=== PATIENT | female | born 1955 | race Caucasian/White ===

== ENCOUNTER 2023-08-03 06:37 | Outpatient (OUT) | payer OTHER, SELFPAY ==
[2023-08-03 07:07] LABS: Basophils Absolute Auto 0.1 10^3/uL (0.0-0.1); Basophils Percent Auto 0.9 % (0.2-2.0); Eosinophils Absolute Auto 0.1 10^3/uL (0.0-0.7); Hematocrit 40.4 % (36.0-48.0); Hemoglobin 13.1 g/dL (12.0-16.0); Immature Granulocytes Abs Auto 0.02 10^3/uL (0.00-0.03); Immature Granulocytes Pct Auto 0.4 % (0.0-0.5); Lymphocytes Absolute Auto 2.1 10^3/uL (1.2-3.8); Mean Corpuscular HGB Conc 32.4 g/dL (29.9-35.2); Mean Corpuscular Hemoglobin 30.6 pg (26.7-34.0); Mean Corpuscular Volume 94.4 fL (81.0-99.0); Mean Platelet Volume 9.6 fL (9.5-13.5); Monocytes Absolute Auto 0.6 10^3/uL (0.3-0.8); Monocytes Percent Auto 10.3 % (1.7-12.0); Neutrophils Absolute Auto 2.7 10^3/uL (1.4-6.5); Neutrophils Percent Auto 48.4 % (43.0-75.0); Platelet Count 303 10^3/uL (150-450); Red Blood Count 4.28 10^6/uL (4.20-5.40); Red Cell Distribution Width 12.7 % (11.0-15.0); White Blood Count 5.5 10^3/uL (4.0-11.0)
[2023-08-03 07:48] LABS: Estimated Average Glucose 117 mg/dL; Glycohemoglobin A1C 5.7 % (4.5-6.2)
[2023-08-03 10:33] LABS: Alanine Aminotransferase 21 U/L (14-59); Albumin Globulin Ratio 1.1; Albumin Level 3.7 g/dL (3.4-5.0); Alkaline Phosphatase 75 U/L (46-116); Anion Gap 12.4; Aspartate Amino Transferase <5 U/L (15-37); BUN Creatinine Ratio 16.2; Bilirubin Total 0.5 mg/dL (0.2-1.0); Calcium 9.2 mg/dL (8.5-10.1); Carbon Dioxide 28.2 mmol/L (21.0-32.0); Chloride 104 mmol/L (98-107); Chol HDL Ratio 3.3; Cholesterol 206 mg/dL (<=200); Estimated GFR (African America >60 (>=60); Estimated GFR (Non-African Ame >60 (>=60); Globulin 3.4 g/dL; Glucose 102 mg/dL (74-106); HDL Cholesterol 62 mg/dL (40-60); Potassium 3.6 mmol/L (3.5-5.1); Sodium 141 mmol/L (136-145); Thyroid Stimulating Hormone 1.461 uIU/mL (0.358-3.740); Total Protein 7.1 g/dL (6.4-8.2); Triglycerides 47 mg/dL (<=150); VLDL CHOLESTEROL 9.4 mg/dL
== END 2023-08-03 06:38 | disposition home or self-care (01) ==
LOC: LAB 06:43
PROVIDERS: PCP Family Medicine; Visit Provider Family Medicine
DX: R73.09 Other abnormal glucose (principal); I10 Essential (primary) hypertension
CPT/HCPCS: 36415; 80053; 80061; 83036; 84436; 84443; 84481; 85025

== ENCOUNTER 2023-08-04 13:05 | Outpatient (REF) | payer OTHER, SELFPAY ==
[2023-08-04 13:36] LABS: Occult Blood Positive
== END 2023-08-04 13:06 | disposition home or self-care (01) ==
LOC: LAB 13:05
PROVIDERS: PCP Family Medicine; Visit Provider Family Medicine
DX: Z12.12 Encounter for screening for malignant neoplasm of rectum (principal)
CPT/HCPCS: G0328

== ENCOUNTER 2023-08-20 13:48 | Outpatient (OUT) | payer OTHER, SELFPAY ==
--- NOTE | 2023-08-20 13:50 | MM_ITS ---
Patient: COLLINS ROGERS Exam Date: 08/20/2023 : 1955 Gender:F Ordering : DR Agustin De Paz . Admission #: [id number] Family : Order #: [id number] CLICK HERE TO VIEW EXAM RADIOLOGY REPORT PROCEDURE: MM TOMOSYNTHESIS SCREENING BI COMPARISON: MG MAMM SCREEN 3D MADIE CAD, 04/26/2021. MG MAMM SCREEN MADIE W CAD, 03/23/2020. MG MAMM SCREEN MADIE W CAD, 12/25/2017. MAMMO MADIE SCREEN, 10/21/1998. INDICATIONS: Screening Calculator Name NCI Breast Cancer Risk Assessment Tool 5 Year Breast Cancer Risk 1.90% Lifetime Breast Cancer Risk 6.70% Personal Breast Cancer No Personal Ovarian Cancer No Treatments wide excision Family Cancers None LOCATION: [facility] BREAST COMPOSITION: Heterogeneously dense,which may obscure small masses. FINDINGS: DIAGNOSTIC CATEGORY 1--NEGATIVE. RIGHT BREAST: No significant suspicious finding. No significant change has occurred. LEFT BREAST: No significant suspicious finding. No significant change has occurred. RECOMMENDATIONS: ROUTINE MAMMOGRAM AND CLINICAL EVALUATION IN 12 MONTHS. PLEASE NOTE: A NORMAL MAMMOGRAM DOES NOT EXCLUDE THE POSSIBILITY OF BREAST CANCER. A CLINICALLY SUSPICIOUS PALPABLE LUMP SHOULD BE BIOPSIED. Dictated by: Rolando Mcgowan M.D. on 08/20/2023 at 15:41 Approved by: Rolando Mcgowan M.D. on 08/20/2023 at 15:43
== END 2023-08-20 13:49 | disposition home or self-care (01) ==
LOC: MAMMO 13:48
PROVIDERS: PCP Family Medicine; Visit Provider Family Medicine
DX: L93.2 Other local lupus erythematosus (principal); R53.83 Other fatigue; Z12.31 Encounter for screening mammogram for malignant neoplasm of breast
CPT/HCPCS: 36415; 77063; 77067; 86038

== ENCOUNTER 2023-08-20 14:10 | Outpatient (OUT) | payer OTHER, SELFPAY ==
[2023-08-21 12:09] LABS: Anti-dsDNA Antibodies 2 IU/mL (0-9)
[2023-08-22 13:10] LABS: Antinuclear Antibodies, IFA Positive (.)
== END 2023-08-20 14:11 | disposition home or self-care (01) ==
LOC: LAB 14:10
PROVIDERS: PCP Family Medicine; Visit Provider Dermatology
DX: L93.2 Other local lupus erythematosus (principal); R53.83 Other fatigue
CPT/HCPCS: 36415; 86038

== ENCOUNTER 2024-08-16 07:15 | Outpatient (OUT) | payer SELFPAY ==
--- OUTSIDE RECORDS SUMMARY | 2024-08-16 07:19 | XMS_ITS | CCD ---
Author Organization [facility] Care Team Providers Care Board Winder Name Role Phone CATHRYN, DR MCNEILL Admitting Unavailable HOY, DR MCNEILL Attending Unavailable HOY, DR MCNEILL Primary Care Unavailable HOY, DR MCNEILL Admitting Unavailable HOY, DR MCNEILL Attending Unavailable HOY, DR MCNEILL Consulting Unavailable HOY, DR MCNEILL Primary Care Unavailable REQUEST, DR WAGNER LISTED Attending Unavaila ble REQUEST, DR WAGNER LISTED Consulting Unavaila ble REQUEST, DR WAGNER LISTED Admitting Unavaila ble HOY, DR MCNEILL Primary Care Unavailable HOY, DR MCNEILL Primary Care Unavailable REQUEST, DR WAGNER LISTED Admitting Unavaila ble REQUEST, DR WAGNER LISTED Attending Unavaila ble REQUEST, DR WAGNER LISTED Consulting Unavaila ble HOY, DR MCNEILL Admitting Unavailable HOY, DR MCNEILL Attending Unavailable HOY, DR MCNEILL Primary Care Unavailable NILL, Vipul Steel Attending Unavailable NILL, Vipul Steel Attending Unavailable Hoy, Charito Referring Unavailable Allergies Allergy Classification Reported Allergen(s) Allergy Type Date of Onset Reaction(s) Facility (2 sources) Latex Drug allergy (disorder) 5 [facility] Repository (1 source) No Known Medication Allergies; Translations: [No Known Medication Allergies] Propensity to adverse reactions (disorder) [facility] Repository Results Test Name Value Interpretation Reference Range Facility Facesheeton 09-07-2023 Facesheet [id number] Normal [facility] General Surgery Office/Clini c Noteon 09-07-2023 General Surgery Office/Clinic Note History of Present Illness 68 yo male with h/o htn, hypercholesterolemia, spinal stenosis, diverticular disease, referred for positive fecal occult blood; denies change in bms or gross blood in stools, no abd complaints; abd operations significant for hysterectomy; patient left without being seen, due to concerns about her insurance coverage Physical Exam HEENT: normal conjunctiva, sclera clear, no scleral icterus, EOM intact, PERRLA, oral mucosa moist without lesions. Neck: trachea midline, no mass, symmetric, no thyromegaly or nodules, no adenopathy Respiratory: lungs CTA, respirations non labored. Cardiovascular: regular rate and rhythm, no murmur, no pedal edema or varicosities. Gastrointestinal: soft, non distended, no tenderness, no masses, no palpable hernias, diastasis recti no, no hepatosplenomegaly; normal bs Lymphatic: no cervical adenopathy, no supraclavicular adenopathy. Musculoskeletal: normal gait, digits and nails without infection, nodes, cyanosis, clubbing. Skin: no rashes, no lesions, no ulcers, no subcutaneous nodules, induration. Psychiatric/Neuro: oriented to time, place, person, judgement normal, affect appropriate for age, insight intact, no focal deficits. Tests: , review of old records completed , Discussed surgical options, risks, and possible complications with patient. Assessment/Plan 1. Positive fecal occult blood test (R19.5: Other fecal abnormalities) Follow-up No qualifying data available Problem List/Past Medical History Ongoing Anxiety Cervical spondylosis Depression Diverticular disease Hypercholesterolemia Hypertensive disorder Positive fecal occult blood test Spinal stenosis Umbilical hernia Historical No qualifying data Procedure/Surgical History Excision of melanoma (05/2015), Abdominal hysterectomy, Carpal tunnel release, Colonoscopy, History of cervical spine surgery. Medications amLODIPine 5 mg Tab, 5 mg= 1 tab(s), Oral, Daily losartan 100 mg Tab, 100 mg= 1 tab(s), Oral, Daily Allergies No Known Allergies No Known Medication Allergies Social History Alcohol Current, Beer, Liquor, 1-2 times per week, 09/07/2023 Substance Abuse - Denies Substance Abuse, 09/07/2023 Tobacco Never (less than 100 in lifetime) Tobacco Use:. Never Smokeless Tobacco Use:., 09/07/2023 Family History Hypertension: Father. Stroke: Mother. Normal [facility] Comment on above: Result Comment: Elec tronically Signed By: DALIA FLORES, Vipul Cowan.ana m\Date and Time Signed: 09/07/23 14:13 EST HUSSAIN - LIPID PROFILEon 2022 CHOL-HDL RATIO NORM SEE BELOW Normal [facility] Comment on above: Result Comment: 3.3 - 4.4 LOW RISK 4.4 - 7.1 AVERAGE RISK 7.1 - 11.0 MODERATE RISK >11.0 HIGH RISK Performed By: #### D ATLIPI #### [facility] [address] [address] [address] Anastasiia [place] Cholesterol [Mass/Vol] 208 mg/dL Critically high <=200 [facility] Comment on above: Performed By: #### D ATLIPI #### [facility] [address] [address] [address] Anastasiia [place] Cholesterol in HDL [Mass/Vol] 73 mg/dL Critically high 40-60 [facility] Comment on above: Performed By: #### D ATLIPI #### [facility] [address] [address] [address] Anastasiia [place] Cholesterol in LDL [Mass/Vol] 125.0 mg/dL Normal [facility] Comment on above: Performed By: #### D ATLIPI #### [facility] [address] [address] [address] Anastasiia [place] Cholesterol.total/Cho lesterol in HDL [Mass ratio] 2.8 {ratio} Normal [facility] Comment on above: Performed By: #### D ATLIPI #### [facility] [address] [address] [address] Anastasiia [place] HDL NORMAL > or = 60 mg/dl - LO W CARDIOVASCULAR RISK <40 mg/dl - HIGH CARDIOVASCULAR RISK Normal [facility] Comment on above: Performed By: #### D ATLIPI #### [facility] [address] [address] [address] Anastasiia [place] LDL CALC NORMAL SEE BELOW Normal [facility] Comment on above: Result Comment: <100 mg/dl OPTIMAL 100 - 129 mg/dl NEAR OR ABOVE OPTIMAL 130 - 159 mg/dl BORDERLINE HIGH 160 - 189 mg/dl HIGH >190 mg/dl VERY HIGH Performed By: #### D ATLIPI #### [facility] [address] [address] [address] Anastasiia [place] Triglyceride [Mass/Vol] 50 mg/dL Normal <=150 [facility] Comment on above: Performed By: #### D ATLIPI #### [facility] [address] [address] [address] Anastasiia [place] VLDL CALC 10.0 mg/dL Normal [facility] Comment on above: Performed By: #### D ATLIPI #### [facility] [address] [address] [address] Anastasiia [place] GLYCOHEMOGLOBIN A1Con 2022 ADA RECOMMENDATION SEE BELOW Normal [facility] Comment on above: Result Comment: ADA RECOMMENDED LIMIT 4.0 - 6.0 ADA THERAPEUTIC TARGET < 7.0 ACTION SUGGESTED > 7.0 Performed By: #### D ATA1C #### [facility] [address] [place] [address] Dr. Anastasiia [place] Glucose [Mass/Vol] 117 mg/dL Normal [facility] Comment on above: Performed By: #### D ATA1C #### [facility] [address] [address] [address] Anastasiia [place] HbA1c (Bld) [Mass fraction] 5.7 % Normal 4.5-6.2 [facility] Comment on above: Performed By: #### D ATA1C #### [facility] [address] [place] [address] Dr. Anastasiia [place] HUSSAIN - LIPID PROFILEon 2021 CHOL-HDL RATIO NORM SEE BELOW Normal [facility] Comment on above: Result Comment: 3.3 - 4.4 LOW RISK 4.4 - 7.1 AVERAGE RISK 7.1 - 11.0 MODERATE RISK >11.0 HIGH RISK Performed By: #### D ATLIPI #### [facility] [address] [address] [address] Anastasiia [place] Cholesterol [Mass/Vol] 191 mg/dL Normal <=200 [facility] Comment on above: Performed By: #### D ATLIPI #### [facility] [address] [place] [address] Dr. Anastasiia [place] Cholesterol in HDL [Mass/Vol] 55 mg/dL Normal 40-60 [facility] Comment on above: Performed By: #### D ATLIPI #### [facility] [address] [address] [address] Anastasiia [place] Cholesterol in LDL [Mass/Vol] 123.6 mg/dL Normal [facility] Comment on above: Performed By: #### D ATLIPI #### [facility] [address] [address] [address] Anastasiia [place] Cholesterol.total/Cho lesterol in HDL [Mass ratio] 3.5 {ratio} Normal [facility] Comment on above: Performed By: #### D ATLIPI #### [facility] [address] [address] [address] Anastasiia [place] HDL NORMAL > or = 60 mg/dl - LO W CARDIOVASCULAR RISK <40 mg/dl - HIGH CARDIOVASCULAR RISK Normal [facility] Comment on above: Performed By: #### D ATLIPI #### [facility] [address] [address] [address] Anastasiia [place] LDL CALC NORMAL SEE BELOW Normal [facility] Comment on above: Result Comment: <100 mg/dl OPTIMAL 100 - 129 mg/dl NEAR OR ABOVE OPTIMAL 130 - 159 mg/dl BORDERLINE HIGH 160 - 189 mg/dl HIGH >190 mg/dl VERY HIGH Performed By: #### D ATLIPI #### [facility] [address] [address] [address] Anastasiia [place] Triglyceride [Mass/Vol] 62 mg/dL Normal <=150 [facility] Comment on above: Performed By: #### D ATLIPI #### [facility] [address] [address] [address] Anastasiia [place] VLDL CALC 12.4 mg/dL Normal [facility] Comment on above: Performed By: #### D ATLIPI #### [facility] [address] [address] [address] Anastasiia [place] GLYCOHEMOGLOBIN A1Con 2021 ADA RECOMMENDATION SEE BELOW Normal [facility] Comment on above: Result Comment: ADA RECOMMENDED LIMIT 4.0 - 6.0 ADA THERAPEUTIC TARGET < 7.0 ACTION SUGGESTED > 7.0 Performed By: #### D ATA1C #### [facility] [address] [address] [address] Anastasiia [place] Glucose [Mass/Vol] 120 mg/dL Normal [facility] Comment on above: Performed By: #### D ATA1C #### [facility] [address] [place] [address] Dr. Anastasiia [place] HbA1c (Bld) [Mass fraction] 5.8 % Normal 4.5-6.2 [facility] Comment on above: Performed By: #### D ATA1C #### [facility] [address] [place] [address] Dr. Anastasiia [place] INSULINon 05-06-2022 Insulin 13.9 uIU/mL Normal 2.6-24.9 [facility] Comment on above: Performed By: #### I NSULIN #### [facility] [address] [place] [address] Dr. Anastasiia [place] CBC AUTO DIFFon 05-05-2022 BASO # 0.0 103/ul Normal 0.0-0.1 [facility] Comment on above: Performed By: #### I SCHUYLER #### [facility] [address] [place] [address] Dr. Anastasiia [place] Basophils/100 WBC (Bld) 0.5 % Normal 0.2-2.0 [facility] Comment on above: Performed By: #### I SCHUYLER #### [facility] [address] [place] [address] Dr. Anastasiia [place] EO # 0.2 103/ul Normal 0.0-0.7 [facility] Comment on above: Performed By: #### I SCHUYLER #### [facility] [address] [place] [address] Dr. Anastasiia [place] Eosinophils/100 WBC (Bld) 2.7 % Normal 0.9-7.0 [facility] Comment on above: Performed By: #### I SCHUYLER #### [facility] [address] [place] [address] Dr. Anastasiia [place] Erythrocyte distribution width (RBC) [Ratio] 12.7 % Normal 11.0-15.0 [facility] Comment on above: Performed By: #### I SCHUYLER #### [facility] [address] [address] [address] Anastasiia [place] Hematocrit (Bld) [Volume fraction] 40.7 % Normal 36.0-48.0 [facility] Comment on above: Performed By: #### I SCHUYLER #### [facility] [address] [address] [address] Anastasiia [place] Hemoglobin (Bld) [Mass/Vol] 13.1 g/dL Normal 12.0-16.0 [facility] Comment on above: Performed By: #### I SCHUYLER #### [facility] [address] [place] [address] Dr. Anastasiia [place] IG # 0.01 10e3/ul Normal 0.00-0.03 [facility] Comment on above: Performed By: #### I SCHUYLER #### [facility] [address] [place] [address] Dr. Anastasiia [place] IG % 0.2 % Normal 0.0-0.5 [facility] Comment on above: Performed By: #### I SCHUYLER #### [facility] [address] [place] [address] Dr. Anastasiia [place] LYMPH # 2.2 103/ul Normal 1.2-3.8 [facility] Comment on above: Performed By: #### I SCHUYLER #### [facility] [address] [place] [address] Dr. Anastasiia [place] Lymphocytes/100 WBC (Bld) 36.0 % Normal 20.5-60.0 [facility] Comment on above: Performed By: #### I SCHUYLER #### [facility] [address] [place] [address] Dr. Anastasiia [place] MANUAL DIFF REQ NO Normal [facility] Comment on above: Performed By: #### I SCHUYLER #### [facility] [address] [place] [address] Dr. Anastasiia [place] MCH (RBC) [Entitic mass] 30.3 pg Normal 26.7-34.0 [facility] Comment on above: Performed By: #### I SCHUYLER #### [facility] [address] [address] [address] Anastasiia [place] MCHC (RBC) [Mass/Vol] 32.2 g/dL Normal 29.9-35.2 [facility] Comment on above: Performed By: #### I SCHUYLER #### [facility] [address] [address] [address] Anastasiia [place] MCV (RBC) [Entitic vol] 94.0 fL Normal 81.0-99.0 [facility] Comment on above: Performed By: #### I SCHUYLER #### [facility] [address] [place] [address] Dr. Anastasiia Montana MONO # 0.6 103/ul Normal 0.3-0.8 [facility] Comment on above: Performed By: #### I SCHUYLER #### [facility] [address] [place] [address] Dr. Anastasiia Montana Monocytes/100 WBC (Bld) 9.8 % Normal 1.7-12.0 [facility] Comment on above: Performed By: #### I SCHUYLER #### [facility] [address] [place] [address] Dr. Anastasiia Montana NEUT # 3.1 103/ul Normal 1.4-6.5 [facility] Comment on above: Performed By: #### I SCHUYLER #### [facility] [address] [place] [address] Dr. Anastasiia Montana Neutrophils/100 WBC (Bld) 50.8 % Normal 43.0-75.0 [facility] Comment on above: Performed By: #### I SCHUYLER #### [facility] [address] [place] [address] Dr. Anastasiia [place] Platelet mean volume (Bld) [Entitic vol] 9.6 fL Normal 9.5-13.5 [facility] Comment on above: Performed By: #### I SCHUYLER #### [facility] [address] [place] [address] Dr. Anastasiia Montana PLT 338 103/ul Normal 150-450 [facility] Comment on above: Performed By: #### I SCHUYLER #### [facility] [address] [address] [address] Anastasiia [place] RBC 4.33 106/ul Normal 4.20-5.40 [facility] Comment on above: Performed By: #### I SCHUYELR #### [facility] [address] [place] [address] Dr. Anastasiia [place] WBC 6.0 103/ul Normal 4.0-11.0 [facility] Comment on above: Performed By: #### I SCHUYLER #### [facility] [address] [place] [address] Dr. Anastasiia [place] FREE THYROXINE INDEX T7on FTI 2.34 Normal 1.30-4.50 [facility] Comment on above: Performed By: #### L IPID, T7, CMP, TSH #### [facility] [address] [place] [address] Dr. Anastasiia [place] T3U 32.0 % Normal 30.0-39.0 [facility] Comment on above: Performed By: #### L IPID, T7, CMP, TSH #### [facility] [address] [place] [address] Dr. Anastasiia [place] T4 [Mass/Vol] 7.30 ug/dL Normal 4.80-13.90 [facility] Comment on above: Performed By: #### L IPID, T7, CMP, TSH #### [facility] [address] [place] [address] Dr. Anastasiia Montana GLYCOHEMOGLOBIN A1Con 2021 ADA RECOMMENDATION SEE BELOW Normal [facility] Comment on above: Result Comment: ADA RECOMMENDED LIMIT 4.0 - 6.0 ADA THERAPEUTIC TARGET < 7.0 ACTION SUGGESTED > 7.0 Performed By: #### A 1C #### [facility] [address] [place] [address] Dr. Anastasiia [place] Glucose [Mass/Vol] 126 mg/dL Normal [facility] Comment on above: Performed By: #### A 1C #### [facility] [address] [place] [address] Dr. Anastasiia [place] HbA1c (Bld) [Mass fraction] 6.0 % Normal 4.5-6.2 [facility] Comment on above: Performed By: #### A 1C #### [facility] [address] [address] [address] Anastasiia [place] IRONon 05-05-2022 Iron [Mass/Vol] 75.0 ug/dL Normal 50.0-170.0 [facility] Comment on above: Performed By: #### I SCHUYLER #### [facility] [address] [address] [address] Anastasiia Montana LIPID PROFILEon 05-05-2022 CHOL-HDL RATIO NORM SEE BELOW Normal [facility] Comment on above: Result Comment: 3.3 - 4.4 LOW RISK 4.4 - 7.1 AVERAGE RISK 7.1 - 11.0 MODERATE RISK >11.0 HIGH RISK Performed By: #### L IPID, T7, CMP, TSH #### [facility] [address] [address] [address] Anastasiia [place] Cholesterol [Mass/Vol] 217 mg/dL Critically high <=200 [facility] Comment on above: Performed By: #### L IPID, T7, CMP, TSH #### [facility] [address] [address] [address] Anastasiia [place] Cholesterol in HDL [Mass/Vol] 50 mg/dL Normal 40-60 [facility] Comment on above: Performed By: #### L IPID, T7, CMP, TSH #### [facility] [address] [address] [address] Anastasiia [place] Cholesterol in LDL [Mass/Vol] 152.6 mg/dL Normal [facility] Comment on above: Performed By: #### L IPID, T7, CMP, TSH #### [facility] [address] [address] [address] Anastasiia [place] Cholesterol.total/Cho lesterol in HDL [Mass ratio] 4.3 {ratio} Normal [facility] Comment on above: Performed By: #### L IPID, T7, CMP, TSH #### [facility] [address] [address] [address] Anastasiia Montana HDL NORMAL > or = 60 mg/dl - LO W CARDIOVASCULAR RISK <40 mg/dl - HIGH CARDIOVASCULAR RISK Normal [facility] Comment on above: Performed By: #### L IPID, T7, CMP, TSH #### [facility] [address] [address] [address] Anastasiia [place] LDL CALC NORMAL SEE BELOW Normal [facility] Comment on above: Result Comment: <100 mg/dl OPTIMAL 100 - 129 mg/dl NEAR OR ABOVE OPTIMAL 130 - 159 mg/dl BORDERLINE HIGH 160 - 189 mg/dl HIGH >190 mg/dl VERY HIGH Performed By: #### L IPID, T7, CMP, TSH #### [facility] [address] [address] [address] Anastasiia [place] Triglyceride [Mass/Vol] 72 mg/dL Normal <=150 [facility] Comment on above: Performed By: #### L IPID, T7, CMP, TSH #### [facility] [address] [address] [address] Anastasiia [place] VLDL CALC 14.4 mg/dL Normal [facility] Comment on above: Performed By: #### L IPID, T7, CMP, TSH #### [facility] [address] [address] [address] Anastasiia Montana OCC BLD IMMUNO SCREENon 04-21 OCCULT BLOOD Negative Normal NEGATIVE [facility] Comment on above: Performed By: #### I SCHUYLER #### [facility] [address] [address] [address] Anastasiia Montana PROF 14(COMP METB)on 022 Albumin [Mass/Vol] 3.5 g/dL Normal 3.4-5.0 [facility] Comment on above: Performed By: #### I SCHUYLER #### [facility] [address] [address] [address] Anastasiia [place] Albumin/Globulin [Mass ratio] 1.0 {ratio} Normal [facility] Comment on above: Performed By: #### I SCHUYLER #### [facility] [address] [address] [address] Anastasiia [place] ALP [Catalytic activity/Vol] 80 U/L Normal 46-116 [facility] Comment on above: Performed By: #### I SCHUYLER #### [facility] [address] [address] [address] Anastasiia [place] ALT [Catalytic activity/Vol] 26 U/L Normal 14-59 [facility] Comment on above: Performed By: #### I SCHUYLER #### [facility] [address] [address] [address] Anastasiia Montana Anion gap [Moles/Vol] 9.5 mmol/L Normal [facility] Comment on above: Performed By: #### I SCHUYLER #### [facility] [address] [address] [address] Anastasiia Montana AST [Catalytic activity/Vol] 16 U/L Normal 15-37 [facility] Comment on above: Performed By: #### I SCHUYLER #### [facility] [address] [place] [address] Dr. Anastasiia [place] Bilirubin [Mass/Vol] 0.5 mg/dL Normal 0.2-1.0 [facility] Comment on above: Performed By: #### I SCHUYLER #### [facility] [address] [place] [address] Dr. Anastasiia Montana Calcium [Mass/Vol] 9.2 mg/dL Normal 8.5-10.1 [facility] Comment on above: Performed By: #### I SCHUYLER #### [facility] [address] [place] [address] Dr. Anastasiia [place] Chloride [Moles/Vol] 106 mmol/L Normal 98-107 [facility] Comment on above: Performed By: #### I SCHUYLER #### [facility] [address] [place] [address] Dr. Anastasiia [place] CO2 [Moles/Vol] 29.7 mmol/L Normal 21.0-32.0 [facility] Comment on above: Performed By: #### I SCHUYLER #### [facility] [address] [place] [address] Dr. Anastasiia Montana Creatinine [Mass/Vol] 0.75 mg/dL Normal 0.55-1.02 [facility] Comment on above: Performed By: #### I SCHUYLER #### [facility] [address] [address] [address] Anastasiia Montana EGFR-AF FINNISH >60 Normal >=60 [facility] Comment on above: Performed By: #### I SCHUYLER #### [facility] [address] [address] [address] Anastasiai [place] EGFR-NON AF FINNISH >60 Normal >=60 [facility] Comment on above: Performed By: #### I SCHUYLER #### [facility] [address] [address] [address] Anastasiia [place] Globulin (S) [Mass/Vol] 3.4 g/dL Normal [facility] Comment on above: Performed By: #### I SCHUYLER #### [facility] [address] [place] [address] Dr. Anastasiia [place] Glucose [Mass/Vol] 112 mg/dL Critically high 74-106 T [facility] Comment on above: Performed By: #### I SCHUYLER #### [facility] [address] [address] [address] Anastasiia [place] Potassium [Moles/Vol] 4.2 mmol/L Normal 3.5-5.1 [facility] [facility] Comment on above: Performed By: #### I SCHUYLER #### [facility] [address] [place] [address] Dr. Anastasiia Montana Protein [Mass/Vol] 6.9 g/dL Normal 6.4-8.[address] [facility] Comment on above: Performed By: #### I SCHUYLER #### [facility] [address] [address] [address] Anastasiia Montana Sodium [Moles/Vol] 141 mmol/L Normal 136-[address] [facility] Comment on above: Performed By: #### I SCHUYLER #### [facility] [address] [place] [address] Dr. Anastasiia Montana Urea nitrogen [Mass/Vol] 17.0 mg/dL Normal 7.0-18.0 [facility] Comment on above: Performed By: #### I SCHUYLER #### [facility] [address] [place] [address] Dr. Anastasiia Montana Urea nitrogen/Creatinine [Mass ratio] 22.7 mg/mg Normal [facility] Comment on above: Performed By: #### I SCHUYLER #### [facility] [address] [place], [place] [address] Dr. Anastasiia Montana TSHon 05-05-2022 TSH 0.887 uIU/mL Normal 0.358-3.740 [facility] Comment on above: Performed By: #### L IPID, T7, CMP, TSH #### [facility] [address] [place], [place] [address] Dr. Anastasiia Montana Encounters Encounter Date Encounter Type Care Provider Facility Start: 08-19-2024 ambulatory Vipul GÓMEZ Facility :[facility] Start: 09-07-2023 End: 09-07-2023 ambulatory Vipul GÓMEZ Facility:[facility] Start: 11-17-2022 End: 11-18-[address] CHARITO LOCKETT Facility:[facility] Start: 08-15-2022 End: 08-16-[address] BERNARD VILLEDA Facility:[facility] Start: 06-17-[address] CHARITO LOCKETT Facility :[facility] Start: 05-08-2022 Encounter for genera l adult medical examination without abnormal findings DR CHARITO LOCKETT [facility] Start: 05-05-2022 End: 05-06-[address] CHARITO LOCKETT Facility:[facility] Start: 05-05-2022 End: 05-06-2022 Encounter for general adult medical examination without abnormal findings DR CHARITO LOCKETT Facility:[facility] Start: 04-14-[address] CHARITO LOCKETT Facility :[facility] Payers Date Payer Category Payer Private Health Insurance [facility] [id number] 1959 Private Health Insurance [facility] [id number] 1959 Self-pay 1959 Self-pay [id number] 1955 Unknown [id number] 2.16.84 [id number] 1955 Unknown [id number] 2.16.84 [id number] 1955 Unknown [id number] 2.16.84 [id number] 1955 Unknown [id number] 2.16.8 [id number] 1955 Unknown [id number] 2.16.8 [id number] Unknown [id number] 2.16.84 [id number] Unknown [id number] 2.16.84 [id number] Summary Purpose Family History No Family History Records FoundNo Family History Records Found Advance Directives No Advanced Directives Records FoundNo Advanced Directives Records Found Additional Source Comments INFORMATION SOURCE (unrecogn ized section and content) DATE CREATED AUTHOR 11/18/2022 [facility] DATE CREATED AUTHOR AUTHOR'S ORGANIZ ATION 08/14/2024 [facility] FOR RECORDS PERTAINING TO PATIENTS WHO ARE OR HAVE BEEN ENROLLED IN A CHEMICAL DEPENDENCY/SUBSTANCEABUSE PROGRAM, SOME INFORMATION MAY BE OMITTED. This clinical summary was aggregated from multiple sources. Caution should be exercised in using it in the provision of clinical care. This summary normalizes information from multiple sources, and as a consequence, information in this document may materially change the coding, format and clinical context of patient data. In addition, data may be omitted in some cases. CLINICAL DECISIONS SHOULD BE BASED ON THE PRIMARY CLINICAL RECORDS. [facility] [employer] [facility]. provides no warranty or guarantee of the accuracy or completeness of information in this document.
[2024-08-16 09:53] LABS: Magnesium 1.8 mg/dL (1.8-2.4)
[2024-08-20 16:10] LABS: Calcium, Ionized, Serum 5.3 mg/dL (4.5-5.6)
== END 2024-08-16 07:16 | disposition home or self-care (01) ==
PROVIDERS: PCP Family Medicine; Visit Provider Family Medicine
DX: M62.838 Other muscle spasm (principal)
CPT/HCPCS: 36415; 82330; 83735

== ENCOUNTER 2025-05-12 14:29 | Outpatient (OUT) | payer OTHER, SELFPAY ==
--- OUTSIDE RECORDS SUMMARY | 2024-08-25 13:45 | XMS_ITS ---
Author Organization [facility] [place] Address [address] [place] [address] Care Team Providers Care [place] Operator Name Role Phone Zandra Renan Primary Care Provider Allergies No Known Allergies REASON FOR VISIT would like to review labs Medications Medication SIG (Take, Route, Frequency, Duration) Notes Start Date End Date Status Immune Essentials Daily - as directed Orally Active Elderberry 500 MG as directed Orally Active Losartan Potassium 100 MG 1 tablet Orall y Once a day for 90 days Active amLODIPine Besylate 5 MG TAKE ONE TABLET BY MOUTH DAILY for 90 Active Social History Tobacco Use: Social History Observation Description Date Details (start date - stop date) Never Smoker NA - NA Tobacco Use/Smoking Question Answer Notes Patient is a nonsmoker Vital Signs Weight 196 lbs 08/25/2024 Height 63 in 08/25/2024 Blood pressure systolic 132 mm Hg 08/25/20 24 Blood pressure diastolic 80 mm Hg 024 BMI 34.72 kg/m2 08/25/2024 Encounters Encounter Location Date Provider Diagnosis [facility] [address] [place] [address] 08/25/2024 Renan De Paz Hypertension I10 Assessments Encounter Date Diagnosis (ICD Code) Assessment Notes Treatment Notes Treatment Clinical Notes Section Notes 08/25/2024 Hypertension (ICD-10 - I10) Plan Of Treatment Pending Test Test Name Order Date MAGNESIUM 08/25/2024 PROF CHEM 8 (BAS METB) 08/25/2024 Progress Notes * Liliana ROGERS LDOB:1955 (69 yo F)Acc No.[id number]:08/25/2024 Progress Note Patient: Liliana MOSQUERA Provider: Ching De Paz ([facility])MD :1955 A ge:69 Y S ex:Female Date:08/25/2024 Address:[address] [place], [place] [id number] Check In:05:32 PM ESTCheck O ut:06:10 PM EST Subjective: * Chief Complaints: * 1 . Would like to review labs. * ROS: E ENT: hearing changes d enies. v isual changes d enies.?non-healing mouth sores d enies. s wollen glands or neck lumps d enies. h oarseness d enies. s ore throat d enies. d ifficulty swallowing d enies. n ose bleeds d enies. n michael congestion d enies. e ar ache d enies. e ar discharge?denies. r inging in ears d enies. l ight sensitivity d enies. e ye pain d enies. b lurring d enies. e ye irritation d enies. d ouble vision d enies.?vision loss d enies. G eneral/Constitutional: Sweats: D enies. F atigue d enies. S leep problems d enies. A norexia d enies. M alaise d enies. W eight loss d enies.?Fatigue or Weakness d enies. F ever or Chills d enies. C ardiovascular: Shortness of Breath w/lying flat d enies. L ightheadedness/dizziness d enies. C hest tightness/ heavy pressure d enies. S welling of legs, ankles, or feet d enies. W aking up with shortness of breath d enies. C hest pain denies. P alpitations d enies. W eight gain d enies. R espiratory: Chronic or frequent cough d enies. C oughing up blood?denies. D ifficulty breathing d enies. P roductive cough d enies. S noring?denies. S hortness of breath that awakens from sleep (PND) d enies. C hest pain d enies. S putum production d enies. W heezing d enies. M usculoskeletal: Joint pain d enies. J oint Fluid d enies. B ack pain d enies. K nee pain d enies. N oswald pain d enies. J oint Stiffness d enies. M uscle cramps d enies. W eakness of muscles d enies. A rthritis d enies. M uscle aches d enies. P ain in shoulder(s) d enies. S wollen joints d enies. * Active Problem List I10 Hypertension Modified On:04/25/2023 Status:confirmed Z00.00 Well adult Modified On:04/25/2023 Status:confirmed I10 HTN (hypertension) Modified On:07/25/2024 Status:confirmed M62.838 Muscle spasm Modified On:08/14/2024 Status:confirmed * Medical History: A nxiety, Depression, Breast mass, Cervical spondylosis, COVID-19, Diverticular disease, Hypertension, Knee osteoarthritis, Meningioma, Hypercholesterolemia, Spinal stenosis, Umbilical hernia.? * Surgical History: H YSTERECTOMY TOTAL , CARPAL TUNNEL release , cancer left thgih skin , neck surgery . * Family History: F ather: , diagnosed with Unspecified heart disease. M other: , stroke, diagnosed with Unspecified heart disease. B rother(s): alive. S ister(s): alive. S on(s): alive. 1 brother(s) , 1 sister(s) - healthy. 1 son(s) - healthy. . * Social History: T obacco Use: T obacco Use/Smoking P atient is a n onsmoker * Medications: T aking amLODIPine Besylate 5 MG Tablet TAKE ONE TABLET BY MOUTH DAILY , Taking Elderberry 500 MG Capsule as directed Orally , Taking Immune Essentials Daily(Multiple Vitamins-Minerals) - Capsule as directed Orally , Taking Losartan Potassium 100 MG Tablet 1 tablet Orally Once a day , Medication List reviewed and reconciled with the patient * Allergies: N .K.D.A. Objective: * Vitals: W t:196lbs, Ht: 63 in, BP:132/80mm Hg, BMI:34.72Index, Ht-cm: 160.02 cm, Wt-k.9 kg. * Examination: P hysical Exam: GENERAL: w ell developed, well nourished, in no acute distress. HEAD: n ormocephalic/atraumatic. EYES: p upils equal, round and reactive to light, conjunctivae and sclerae normal. EARS: n o deformity or lesion of external ear, canals and TM appear normal bilaterally, TM's intact, not inflamed with normal light reflex, hearing grossly normal to conversational speech. NOSE: n o deformity, discharge, inflammation, or lesions.? MOUTH: m ucous membranes moist, normal oropharynx and posterior pharynx without lesions or exudates, tongue normal, dentition normal. NECK: n oswald supple, no masses or palpable cervical nodes, trachea midline, thyroid without nodules, masses, tenderness, or enlargement. CHEST: n o chest wall deformity, no chest wall tenderness.? LUNGS: n ormal respiratory effort and clear to auscultation, no wheezes, rales, or rhonchi, good air exchange. CARDIO: r egular rate and rhythm, normal S1 and S2, nor murmur, rub, or gallop. PULSES: n ormal capillary refill. ABDOMEN: s oft, non-distended, non-tender, no masses. MUSCULOSKELETAL: n o deformity or scoliosis noted, normal range of motion, joints normal, no erythema, edema, effusion, or ecchymosis. EXTREMITY: n o clubbing, cyanosis, edema, or deformity with normal ROM in both upper and lower bilateral extremities. NEUROLOGIC: g rossly normal. SKIN: n o rashes, ulcerations, or suspicious lesions. LYMPH NODES: n o cervical adenopathy, nodes normal. MENTAL STATUS: a lert and oriented x3, normal mood and affect. Assessment: * Assessment: 1. H ypertension - I10 (Primary) Plan: * Treatment: * Preventive Medicine: Screenings/Counseling: B GA ACTION PLAN Above Normal BMI Follow-up D ietary management education, guidance, and counseling * * Sign off status: Completed Visit Status: C HK (Check Out) true * Provider: Ching De Paz ([facility])MD Date: 10/25/2023 Generated for Printi ng/Faxing/eTransmitting on: 0 05/12/2025 02:31 PM EDT History and Physical Notes * Examination Category Sub-Category Detail Notes Category Not es Physical Exam GENERAL: well developed, well nourished, in no acute distress HEAD: normocephalic/atraum atic EYES: pupils equal, round and reactive to light, conjunctivae and sclerae normal EARS: no deformity or lesi on of external ear, canals and TM appear normal bilaterally, TM's intact, not inflamed with normal light reflex, hearing grossly normal to conversational speech NOSE: no deformity, discha rge, inflammation, or lesions MOUTH: mucous membranes oriln st, normal oropharynx and posterior pharynx without lesions or exudates, tongue normal, dentition normal NECK: neck supple, no mass es or palpable cervical nodes, trachea midline, thyroid without nodules, masses, tenderness, or enlargement CHEST: no chest wall deform ity, no chest wall tenderness LUNGS: normal respiratory e ffort and clear to auscultation, no wheezes, rales, or rhonchi, good air exchange CARDIO: regular rate and rhy thm, normal S1 and S2, nor murmur, rub, or gallop PULSES: normal capillary ref ill ABDOMEN: soft, non-distended, non-tender, no masses RECTAL: MUSCULOSKELETAL: no deformity or scol iosis noted, normal range of motion, joints normal, no erythema, edema, effusion, or ecchymosis EXTREMITY: no clubbing, cyanosi s, edema, or deformity with normal ROM in both upper and lower bilateral extremities NEUROLOGIC: grossly normal SKIN: no rashes, ulceratio ns, or suspicious lesions LYMPH NODES: no cervical adenopat hy, nodes normal MENTAL STATUS: alert and oriented x 3, normal mood and affect
--- OUTSIDE RECORDS SUMMARY | 2025-02-06 05:14 | XMS_ITS ---
Author Organization [facility] [place] Address [address] [place] [address] Care Team Providers Care Tour Escort Name Role Phone Zandra Renan Primary Care Provider [phone] REASON FOR VISIT refill Medications Medication SIG (Take, Route, Frequency, Duration) Notes Start Date End Date Status Losartan Potassium 100 MG 1 tablet Orall y Once a day for 90 days Active Encounters Encounter Location Date Provider Diagnosis [facility] [address] [place] [address] 02/06/2025 Renan De Paz Plan Of Treatment Medication Medication Name Sig Start Date Stop Date Notes Losartan Potassium 100 MG 1 tablet Orall y Once a day for 90 days Progress Notes * Liliana ROGERS LDOB:1955 (69 yo F)Acc No.[id number]:02/06/2025 Patient: Aguilar CHUNG Liliana Newman :1955 A ge:69 Y S ex:Female Address:[address] [place] [address], [id number] * Refills Refill Losartan Potassium Tablet, 100 MG, Orally, 90, 1 tablet, Once a day, 90 days, Refills=3 * true * Date: Generated for Pal brown/Federico/eTransmitting on: 0 05/12/2025 02:32 PM EDT
--- NOTE | 2025-05-12 14:34 | MM_ITS ---
Patient Name: COLLINS ROGERS MR#: [id number] : 1955 Exam Date: 05/12/2025 Ordering Doctor: DR CHARITO LOCKETT . RADIOLOGY REPORT PROCEDURE: MM TOMOSYNTHESIS SCREENING BI COMPARISON: MM TOMOSYNTHESIS SCREENING BI, 08/20/2023. MG MAMM SCREEN 3D MADIE CAD, 04/26/2021. MG MAMM SCREEN MADIE W CAD, 03/23/2020. MG MAMM SCREEN MADIE W CAD, 12/25/2017. INDICATIONS: Screening Calculator Name NCI Breast Cancer Risk Assessment Tool 5 Year Breast Cancer Risk 1.90% Lifetime Breast Cancer Risk 6.40% Personal Breast Cancer No Personal Ovarian Cancer No Treatments wide excision Family Cancers None LOCATION: [facility] BREAST COMPOSITION: There are scattered areas of fibroglandular density. FINDINGS: DIAGNOSTIC CATEGORY 1--NEGATIVE. RIGHT BREAST: No significant suspicious finding. LEFT BREAST: No significant suspicious finding. RECOMMENDATIONS: ROUTINE MAMMOGRAM AND CLINICAL EVALUATION IN 12 MONTHS. PLEASE NOTE: A NORMAL MAMMOGRAM DOES NOT EXCLUDE THE POSSIBILITY OF BREAST CANCER. A CLINICALLY SUSPICIOUS PALPABLE LUMP SHOULD BE BIOPSIED. Dictated by: Cristo Akhtar DO on 05/12/2025 at 16:01 Approved by: Cristo Akhtar DO on 05/12/2025 at 16:02
--- OUTSIDE RECORDS SUMMARY | 2025-05-12 16:00 | XMS_ITS | CCD ---
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 Name Role Phone ZANDRA, DR MCNEILL Admitting Unavailable HOY, DR MCNEILL [...] Unavailable HOY, DR MCNEILL Primary Care Unavailable Hoy, Charito Primary Care Physician Vipul OVERTON Admitting Unavailable NILL, Viupl Steel Attending Unavailable NILL, Vipul Steel Referring Unavailable NILL, Vipul Steel Attending Unavailable Allergies Allergy Classification Reported Allergen(s) Allergy Type Date of Onset Reaction(s) Facility (2 sources) Latex Drug allergy (disorder) 5 [facility] Repository (1 source) No Known Medication Allergies; Translations: [No Known Medication Allergies] Propensity to adverse reactions (disorder) [facility] Repository Medications Completed/Discontinued Medications Medication Drug Class(es) Dates Sig (Normalized) Sig (Original) amLODIPine 5 mg oral tablet (2 sources) Dihydropyridine Calcium Channel Amlou Start: 08-22-2023 amLODIPine 5 mg Tab 5 mg = 1 tab(s), Oral, Daily, 0 Refill(s), Refills(s) 0, High blood pressure Start Date: 08/22/23 Status: Ordered losartan potassium 100 mg oral tablet (2 sources) Angiotensin 2 Receptor Malou Start: 08-22-2023 take 1 tablet by mouth once daily Problems Problem Classification Problem Date Documented Date Episodic/Chronic Abdominal hernia (2 sources) Umbilical hernia 08-22-2023 Episodic Anxiety disorders (2 sources) Anxiety 08-22-2023 Chronic Disorders of lipid metabolism (2 sources) Hypercholesterolemia 08-22-2023 Chronic Diverticulosis and diverticulitis (3 sources) Diverticular disease; Translations: [Diverticula of intestine] Onset: 09-05-2008-22-2023 Chronic Essential hypertension (2 sources) Hypertensive disorder 08-22-2023 Chronic Mood disorders (2 sources) Depressive disorder 08-22-2023 Chronic Other gastrointestinal disorders (2 sources) Occult blood in stools 09-07-2023 Episodic Other nutritional; endocrine; and metabolic disorders (2 sources) Body mass index 30+ - obesity 08-19-2024 Chronic Other nutritional; endocrine; and metabolic disorders (2 sources) Obesity caused by energy imbalance 08-14-2024 Chronic Other screening for suspected conditions (not mental disorders or infectious disease) (1 source) Screening for malignant neoplasm of colon done; Translations: [Encounter for screening for malignant neoplasm of colon] Onset: 08-19-20 Episodic Spondylosis; intervertebral disc disorders; other back problems (2 sources) Cervical spondylosis 08-22-2023 Chronic Spondylosis; intervertebral disc disorders; other back problems (2 sources) Spinal stenosis 08-22-2023 Episodic Unclassified (2 sources) Patient encounter status 08-19-2024 Results Test Name Value Interpretation Reference Range Facility Main OR Intraoperative Recor don 09-08-2024 Main OR Intraoperative Record Main OR Intraoperative Record IntraOp Document Type FT Summary Primary Physician: Vipul OVERTON MD Finalized Date/Time: 09/08/24 10:11:45 Pt. Name: COLLINS ROGERS/Sex: 1955 Female Med Rec #: [id number] Physician: Vipul OVERTON MD Financial #: [id number] Pt. 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 Cyr supervising case Last Modified By: Gisella TORRES, Tru Obando RN, Tru Arrieta RN 09/05/24 09:14:30 09/05/24 09:14:30 09/05/24 09:14:30 Entry 4 Case Attendee Cresencio Mary Role Performed Scrub - Primary Time In 09/05/24 08:46:00 Time Out 09/05/24 09:08:00 Procedure COLONOSCOPY(.) Comments Last Modified By: Tru Obando RN 09/05/24 09:14:30 Perioperative Protocols FT Pre-Care Text: Implements protective measures prior to operative or invasive procedure, confirms identity before the operative or invasive procedure, verifies operative procedure, surgical site, and laterality Entry 1 Procedure(s) COLONOSCOPY(.) Patient Identity Birthday, ID Band Verified (select at Check, Patient least 2): Participation Consents / H and P Anesthesia Consent, Operative Site N/A Verified H&P, Surgery/Procedure Marking Verified Consent Surgical Site No Laterality Verified n/a Verified Procedure Verified Yes Correct Patient Yes Position Verified Availability Medication Prep Dry n/a Verified (If Applicable) PreOp Antibiotic No Time Out Amos Mckeon CRNA, Given Participants DALIA FLORES, Gisella Hines RN, Tyra Leyva Micala E Time Out Complete 09/05/24 08:48:00 Outcomes Met? Yes Last Modified By: Tru Obando RN 09/05/24 08:48:51 Post-Care Text: The patient is free from signs and symptoms of injury caused by extraneous objects Allergy Information FT Pre-Care Text: Verifies allergies Entry 1 Allergies Reviewed? Yes Allergies Reviewed Self/Patient With Outcomes Met? Yes Last Modified By: Tru Obando RN 09/05/24 08:49:21 Post-Care Text: The patient received appropriate medication(s) safely administered during the perioperative period Surgical Procedures FT Entry 1 Procedure Description Procedure COLONOSCOPY Modifiers . Surgeon Description Colonoscopy Primary Procedure Yes Primary Surgeon Vipul OVERTON MD Start 09/05/24 08:51:00 Stop 09/05/24 09:06:00 Anesthesia Type General Surgical Service General Wound Class 2 - Clean-Contaminated Last Modified By: Tru Obando RN 09/05/24 09:06:55 General Case Data FT Pre-Care Text: Classifies surgical wound, implements aseptic technique, initiates traffic control Entry 1 Case Information OR ENDO 2 FT Case Level Level 2 Wound Class 2 - Clean-Contaminated Specialty General ASA Class 3 Preop Diagnosis Colon cancer screening Postop Same As Preop No Postop Diagnosis Sigmoid diverticulosis Outcomes Met? Yes Last Modified By: Tru Obando RN 09/05/24 09:06:36 Post-Care Text: The patient is free from signs and symptoms of infection Skin Assessment (Pre Procedure) FT Pre-Care Text: Implements protective measures to prevent skin/ tissue injury due to thermal or mechanical sources Evaluates for signs and symptoms of physical injury to skin and tissue Entry 1 Skin Integrity Dry, Warm Skin Abnormality No Outcomes Met? Yes Last Modified By: Tru Obando RN 09/05/24 08:50:47 Post-Care Text: The patient is free from signs and symptoms of injury caused by extraneous objects Patient Positioning FT Pre-Care Text: Identifies physical alterations that require additional precautions for procedure-specific positioning, verifies presence of prosthetics or corrective devices, positions the patient, evaluates the patient for signs and symptoms of injury as a result of positioning Entry 1 Procedure COLONOSCOPY(.) Body Position Lateral, right side up Feet Uncrossed? Yes Left Arm Position Resting at Side Right Arm Position Resting at Side Left Leg Position Extended Right Leg Position Extended Positioning Device Safety Strap, Pillow Under Head Large Press Points Checked Yes By Gisella TORRES, Tru Fox (more content not included)... Normal [facility] Discharge Instructionson Discharge Instructions Discharge Instructions COLLINS ROGERS :1955 Visit Date:09/05/2024 Inpatient Discharge Instructions Your Care Team Admitting Physician - Vipul OVERTON MD Referring Physician - Vipul OVERTON MD Reason for Your Visit SCREENING Your Diagnosis Diverticulosis of sigmoid colon This Is Your Medications List amlodipine (amLODIPine 5 mg Tab) losartan (losartan 100 mg Tab) Procedure History Colonoscopy (09/05/2024), Excision of melanoma (05/2015), Abdominal hysterectomy, Carpal tunnel release, Colonoscopy, History of cervical spine surgery, Lateral internal anal sphincterotomy. What to do next Instructions From Your Doctor Event Name Event Result Discharge Activity Resume normal activities in 24 hours, Arrange for a responsible adult supervision for 24 hours Discharge Restrictions No driving for 24 hrs, Do not operate machinery or tools, Do not make important decisions for 24 hours, Do not drink alcoholic beverages for 24 hours Discharge Diet(s) Other: high fiber Call Your Doctor For Persistent or heavy bleeding, Temperature above 101.5 degrees, Redness, swelling, or pus at operative site, Severe pain at the operative site, Persistent vomiting Discharge Instructions Discharge Instructions New Follow Up Appointments after Discharge Follow Up with Vipul OVERTON When: Only if needed Where: [address] [place] [address], [address] [place] [id number]- [facility] (1) Medications What How Much When Instructions Next Dose Unchanged amlodipine (amLODIPine 5 mg Tab) 1 Tablets By Mouth Every day 0 Refill(s) Unchanged losartan (losartan 100 mg Tab) 1 Tablets By Mouth Every day 1 Unknown, 0 Refill(s) Test Results No qualifying data available. Allergies No Known Allergies No Known Medication Allergies Problems Ongoing - Any problem that you are currently receiving treatment for. Anxiety BMI 35.0-35.9,adult Cervical spondylosis Depression Diverticular disease Hypercholesterolemia Hypertensive disorder Obesity due to excess calories Positive fecal occult blood test Screening for malignant neoplasm of colon Spinal stenosis Umbilical hernia Education Materials Diverticulosis Many people have small pouches in their colon called diverticulum. The diverticulum bulge outward through weak spots in the colon. You could have one or more of these pouches in the colon. The condition of having these pouches in the colon is called diverticulosis or diverticular disease. Diverticulosis is usually diagnosed by tests to evaluate something else. For example, you may have had a colonoscopy to screen for colon cancer when the diverticulosis was found. Most people with diverticulosis do not have any discomfort or problems. If symptoms develop, they may include mild cramps, bloating, and constipation. A complication of this condition is called diverticulitis. This is when the diverticulum become inflamed and infected. How to treat diverticulosis: Increasing the amount of fiber in the diet may reduce symptoms of diverticulosis and prevent complications such as diverticulitis (infected diverticuli). Fiber keeps stool soft and lowers pressure inside the colon so that bowel contents can move through easily. You should eat 20 to 35 grams of fiber each day. The table below shows the amount of fiber in some foods that you can easily add to your diet. Adding fiber slowly may decrease the bloating and fullness sometimes felt with an immediate high fiber diet. The doctor may also recommend taking a fiber product such as Citrucel or Metamucil once a day. In the past people with diverticulosis were to avoid nuts, corn, and seeds. This has not been found to be true. If you find that certain foods create cramping or bloating, avoid that food. Foods high in fiber include: Fresh fruits, fresh vegetables, legumes (beans), whole wheat bread, bran muffins or cereal, and nuts. See the table below for examples of high fiber foods. Remember, your goal is 20-35 grams per day. Amount of fiber in different foods Food Serving Grams of fiber Fruits Apple (with skin) 1 medium apple 4.4 Banana 1 medium banana 3.1 Oranges 1 orange 3.1 Prunes 1 cup, pitted 12.4 Juices Apple, unsweetened, w/added ascorbic acid 1 cup 0.5 Grapefruit, white, canned, sweetened 1 cup 0.2 Grape, unsweetened, w/added ascorbic acid 1 cup 0.5 [place] 1 cup 0.7 Vegetables Cooked Green beans 1 cup 4.0 Carrots 1/2 cup sliced 2.3 Peas 1 cup 8.8 Potato (baked, with skin) 1 medium potato 3.8 Raw [place] (with peel) 1 cucumber 1.5 Lettuce 1 cup shredded 0.5 Tomato 1 medium tomato 1.5 Spinach 1 cup 0.7 Legumes Baked beans, canned, no salt added 1 cup 13.9 Kidney beans, canned 1 cup 13.6 Mcdaniel beans, canned 1 cup 11.6 Lentils, boiled 1 cup 15 (more content not included)... Normal [facility] Comment on above: Result Comment: Elec tronically Signed By: Malini Fulton I\.ana m\Date and Time Signed: 09/05/24 09:24 EST Inpatient Patient Summaryon 09-05-2024 Inpatient Patient Summary Inpatient Patient Summary [address] [address] [facility] Clinical Discharge Instructions PERSON INFORMATION Name: SUE COLLINS Newman PHYSICIANS Admitting Physician: Vipul OVERTON MD Attending Physician: Vipul OVERTON MD PCP: Zandra FLORES, Charito Discharge Diagnosis: Diverticulosis of sigmoid colon Comment: PATIENT EDUCATION INFORMATION Instructions: Medication Leaflets: Follow up: With: Address: When: Vipul OVERTON [address] [place] [address], [address], [place] [phone] Business (1) , only if needed MEDICATION LIST Medications to Continue with No Changes Other Medications amlodipine (amLODIPine 5 mg Tab) 1 Tablets By Mouth every day. 0 Refill(s). losartan (losartan 100 mg Tab) 1 Tablets By Mouth every day. 1 Unknown, 0 Refill(s). Comment: Normal [facility] Main OR PACU II Recordon Main OR PACU II Record Main OR PACU II Record PACU Phase II Document Type FT Summary Primary Physician: Vipul OVERTON MD Finalized Date/Time: 09/05/24 09:40:29 Pt. Name: COLLINS ROGERSO.B./Sex: 1955 Female Med Rec #: [id number] Physician: Vipul OVERTON MD Financial #: [id number] Pt. Type: O Room/Bed: / Admit/Disch: 09/05/24 07:15:50 - Institution: Case Times PACU II FT Pre-Care Text: Identifies barriers to communication and implements measures to provide psychological support and determines knowledge level Develops individualized plan of care, and ensures continuity of care Maintains patient's dignity and privacy, and maintains patient confidentiality Identifies and reports philosophical, cultural, and spiritual beliefs and values Identifies individual values and wishes concerning care administers prescribed antibiotic therapy and immunizing agents as ordered, Evaluates postoperative tissue perfusion Implements thermoregulation measures, and monitors body temperature Evaluates postoperative respiratory status Evaluates postoperative cardiac status Evaluates postoperative neurological status Assesses pain control, collaborated in initiating patient-controlled analgesia and implements alternative methods of pain control Verifies allergies, administers prescribed medications and solutions, evaluates response to medications Entry 1 In PACU II 09/05/24 09:11:00 Discharge from PACU 09/05/24 09:31:00 II Outcomes Met? Yes Last Modified By: Malini Fulton I 09/05/24 09:40:25 Post-Care Text: The patient demonstrates knowledge of the expected response to the operative or invasive procedure The patient's care is consistent with the individualized perioperative plan of care The patient's right to privacy is maintained The patient's value system, lifestyle, ethnicity, and culture are considered, respected, and incorporated into the perioperative plan of care The patient participates in decisions affecting his or her perioperative plan of care. The patient is free from signs and symptoms of infection The patient has wound/tissue perfusion consistent with or improved from baseline levels established preoperatively The patient is at or returning to normothermia at the conclusion of the immediate postoperative period The patient's respiratory function is consistent with or improved from baseline levels established preoperatively The patient's cardiovascular status is consistent with or improved from baseline levels established preoperatively The patient's neurological status is consistent with or improved from baseline levels established preoperatively The patient demonstrates and/or reports adequate pain control throughout the perioperative period The patient received appropriate medication(s), safely administered during the perioperative period Finalized By: Malini Fulton I Document Signatures Signed By: Malini Fulton I 09/05/24 09:40 [facility] Main OR Preoperative Recordo n 09-05-2024 Main OR Preoperative Record Main OR Preoperative Record Holding Area Document Type FT Summary Primary Physician: Vipul OVERTON MD Finalized Date/Time: 09/05/24 07:45:20 Pt. Name: COLLINS ROGERS Paty Chowdary/Sex: 1955 Female Med Rec #: [id number] Physician: Vipul OVERTON MD Financial #: [id number] Pt. Type: O Room/Bed: / Admit/Disch: 09/05/24 07:15:50 - Institution: Case Times Holding FT Pre-Care Text: Verifies consent for planned procedure, identifies individual values and wishes concerning care, includes family members in perioperative teaching Secures patient's records' belongings, and valuables, maintains patient's dignity and privacy, and maintains patient confidentiality Entry 1 In Holding 09/05/24 07:37:00 Outcomes Met? Yes Last Modified By: Tru Obando RN 09/05/24 07:43:54 Post-Care Text: The patient participates in decisions affecting his or her perioperative plan of care The patient's right to privacy is maintained Surgery Checklist FT Entry 1 Patient Birthday, ID Band Procedure History and Physical, Identification: Check, Patient Verification: Surgical Consent, With Participation Patient NPO after Midnight: No Date/Time: 09/05/24 03:00:00 Results Reviewed yellow liquid bowel Personal Items: Glasses, Jewelry Comments: results Personal Items clothing, shoes, Limitations: none Comment: earrings, metal plate in neck, glasses Complaints of Pain: Yes Pain Comment: headache Operative Site n/a Marked By: n/a Marking: Location: n/a Availability Equipment Verified: Does Patient Smoke No Patient states Yes Comment - Adult Cindy postop adult Supervision supervision available Case Cancelled in No Holding Area see comments below for reason Last Modified By: Tru Obando RN 09/05/24 07:45:18 General Comments: pt finished bowel prep at 0300, per patient nothing to eat or drink since MSRN Finalized By: Tru Obando RN Document Signatures Signed By: Tru Obando RN 09/05/24 07:45 Normal [facility] Outpatient Surgery Discharge Instructionon 09-05-2024 Outpatient Surgery Discharge Instruction Outpatient Surgery Discharge Instruction [address] [address] Patient Discharge Instructions PERSON INFORMATION Name: COLLINS ROGERS Date of : 1955 Current Date: 09/05/2024 09:10:26 PHYSICIANS Admitting Physician: Vipul OVERTON MD Discharge Diagnosis: Diverticulosis of sigmoid colon SUE, COLLINS Paty has been given the following list of follow-up instructions, prescriptions, and patient education materials: PATIENT FOLLOW-UP INFORMATION Diet: Other: high fiber Discharge Activity: Resume normal activities in 24 hours, Arrange for a responsible adult supervision for 24 hours Discharge Restrictions: No driving for 24 hrs, Do not operate machinery or tools, Do not make important decisions for 24 hours, Do not drink alcoholic beverages for 24 hours Call Your Doctor For: Persistent or heavy bleeding, Temperature above 101.5 degrees, Redness, swelling, or pus at operative site, Severe pain at the operative site, Persistent vomiting IF UNABLE TO CONTACT YOUR PHYSICIAN AND YOU FEEL IT IS AN EMERGENCY, GO TO THE NEAREST EMERGENCY ROOM OR CALL 911 I, SUE COLLINS Newman, have received the attached patient education materials/instruction s and have verbalized understanding: May we do a follow up call? Yes No I was present when discharge instructions were given Patient Signature Date Clinican/Nurse Signature Date Follow up: With: Address: When: Vipul OVERTON [address] [place] [address], [address], [place] [phone] Business (1) , only if needed Pharmacy Information: You may receive a survey from [email or web address] asking you to rate your care experience. Your feedback is important and will help us understand what we do well and how we can improve the quality of care we provide to you, your loved ones and our community. It???s an honor to serve you. Thank you for choosing [facility] HERE ARE THE MEDICATION CHANGES THAT OCCURRED DURING YOUR HOSPITAL STAY Medications to Continue with No Changes Other Medications amlodipine (amLODIPine 5 mg Tab) 1 Tablets By Mouth every day. 0 Refill(s). losartan (losartan 100 mg Tab) 1 Tablets By Mouth every day. 1 Unknown, 0 Refill(s). PATIENT EDUCATION INFORMATION Instructions: Medication Leaflets: Normal [facility] Reminderson 09-05-2024 Reminders Reminders From: Pat Douglass LPN To: N - Clinical; Sent: 09/05/2024 14:23:49 EST Show up: 08/05/2034 07:00:00 EDT Subject: colonoscopy recall Due Date/Time: 09/05/2034 07:00:00 EST Reminder/Recall Patient due for screening colonoscopy 09/05/2034. [facility] Ambulatory Visit Summaryon 1 Ambulatory Visit Summary Ambulatory Visit Summary COLLINS ROGERS :1955 Visit Date:08/19/2024 Ambulatory Visit Instructions Your Diagnosis Screening for malignant neoplasm of colon Your Care Team Attending Physician - DALIA FLORES, Vipul Steel Primary Care Physician - Charito De Paz MD This Is Your Medications List Contact prescribing physician if questions or concerns amlodipine (amLODIPine 5 mg Tab) losartan (losartan 100 mg Tab) Procedures Performed Excision of melanoma (05/2015), Abdominal hysterectomy, Carpal tunnel release, Colonoscopy, History of cervical spine surgery, Lateral internal anal sphincterotomy. Discharge Vitals Heart Rate (Peripheral) 72 Respiratory Rate 16 Blood Pressure 116/78 Height 160 cm Height 63 in Weight 90.2 kg Weight 198.44 lb BMI 35.23 Medications What How Much When Instructions Unchanged amlodipine (amLODIPine 5 mg Tab) 1 Tablets By Mouth Every day 0 Refill(s) Contact prescribing physician if questions or concerns Unchanged losartan (losartan 100 mg Tab) 1 Tablets By Mouth Every day 1 Unknown, 0 Refill(s) Contact prescribing physician if questions or concerns Allergies No Known Allergies No Known Medication Allergies Problems Ongoing - Any problem that you are currently receiving treatment for. Anxiety BMI 35.0-35.9,adult Cervical spondylosis Depression Diverticular disease Hypercholesterolemia Hypertensive disorder Obesity due to excess calories Positive fecal occult blood test Screening for malignant neoplasm of colon Spinal stenosis Umbilical hernia Patient Survey You may receive a survey via text or e-mail asking about your office visit. Please share your experience with us by completing your survey. We appreciate your feedback and thank you for choosing us for your care. Normal [facility] HUSSAIN - LIPID PROFILEon 2022 CHOL-HDL RATIO NORM SEE BELOW Normal [facility] Comment on above: Result Comment: 3.3 - 4.4 LOW RISK 4.4 - 7.1 AVERAGE RISK 7.1 - 11.0 MODERATE RISK >11.0 HIGH RISK Performed By: #### D ATLIPI #### [facility] [address] [place] [address] [address] Anastasiia [place] Cholesterol [Mass/Vol] 208 mg/dL Critically high <=200 [facility] Comment on above: Performed By: #### D ATLIPI #### [facility] [address] [place] [address] [address] Anastasiia [place] Cholesterol in HDL [Mass/Vol] 73 mg/dL Critically high 40-60 [facility] Comment on above: Performed By: #### D ATLIPI #### [facility] [address] [place] [address] [address] Anastasiia [place] Cholesterol in LDL [Mass/Vol] 125.0 mg/dL Normal [facility] Comment on above: Performed By: #### D ATLIPI #### [facility] [address] [place] [address] [address] Anastasiia [place] Cholesterol.total/Cho lesterol in HDL [Mass ratio] 2.8 {ratio} Normal [facility] Comment on above: Performed By: #### D ATLIPI #### [facility] [address] [place] [address] [address] Anastasiia [place] HDL NORMAL > or = 60 mg/dl - LO W CARDIOVASCULAR RISK <40 mg/dl - HIGH CARDIOVASCULAR RISK Normal [facility] Comment on above: Performed By: #### D ATLIPI #### [facility] [address] [address] [address] Anastasiia [place] LDL CALC NORMAL SEE BELOW Normal [facility] Comment on above: Result Comment: <100 mg/dl OPTIMAL 100 - 129 mg/dl NEAR OR ABOVE OPTIMAL 130 - 159 mg/dl BORDERLINE HIGH 160 - 189 mg/dl HIGH >190 mg/dl VERY HIGH Performed By: #### D ATLIPI #### [facility] [address] [address] [address] Anastasiia [place] Triglyceride [Mass/Vol] 50 mg/dL Normal <=150 [facility] Comment on above: Performed By: #### D ATLIPI #### [facility] [address] [address] [address] Anastasiia [place] VLDL CALC 10.0 mg/dL Normal [facility] Comment on above: Performed By: #### D ATLIPI #### [facility] [address] [address] [address] Anastasiia [place] GLYCOHEMOGLOBIN A1Con 2022 ADA RECOMMENDATION SEE BELOW Normal [facility] Comment on above: Result Comment: ADA RECOMMENDED LIMIT 4.0 - 6.0 ADA THERAPEUTIC TARGET < 7.0 ACTION SUGGESTED > 7.0 Performed By: #### D ATA1C #### [facility] [address] [address] [address] Anastasiia [place] Glucose [Mass/Vol] 117 mg/dL Normal [facility] Comment on above: Performed By: #### D ATA1C #### [facility] [address] [address] [address] Anastasiia [place] HbA1c (Bld) [Mass fraction] 5.7 % Normal 4.5-6.2 [facility] Comment on above: Performed By: #### D ATA1C #### [facility] [address] [address] [address] Anastasiia [place] HUSSAIN - LIPID PROFILEon 2021 CHOL-HDL RATIO NORM SEE BELOW Normal [facility] Comment on above: Result Comment: 3.3 - 4.4 LOW RISK 4.4 - 7.1 AVERAGE RISK 7.1 - 11.0 MODERATE RISK >11.0 HIGH RISK Performed By: #### D ATLIPI #### [facility] [address] [address] [address] Anastasiia [place] Cholesterol [Mass/Vol] 191 mg/dL Normal <=200 [facility] Comment on above: Performed By: #### D ATLIPI #### [facility] [address] [address] [address] Anastasiia [place] Cholesterol in HDL [Mass/Vol] 55 mg/dL Normal 40-60 [facility] Comment on above: Performed By: #### D ATLIPI #### [facility] [address] [address] [address] Anastasiia [place] Cholesterol in LDL [Mass/Vol] 123.6 mg/dL Normal [facility] Comment on above: Performed By: #### D ATLIPI #### [facility] [address] [address] [address] Anastasiia [place] Cholesterol.total/Cho lesterol in HDL [Mass ratio] 3.5 {ratio} Normal [facility] Comment on above: Performed By: #### D ATLIPI #### [facility] [address] [address] [address] Anastasiia [place] HDL NORMAL > or = 60 mg/dl - LO W CARDIOVASCULAR RISK <40 mg/dl - HIGH CARDIOVASCULAR RISK Normal [facility] Comment on above: Performed By: #### D ATLIPI #### [facility] [address] [address] [address] Anastasiia [place] LDL CALC NORMAL SEE BELOW Normal [facility] Comment on above: Result Comment: <100 mg/dl OPTIMAL 100 - 129 mg/dl NEAR OR ABOVE OPTIMAL 130 - 159 mg/dl BORDERLINE HIGH 160 - 189 mg/dl HIGH >190 mg/dl VERY HIGH Performed By: #### D ATLIPI #### [facility] [address] [address] [address] Anastasiia [place] Triglyceride [Mass/Vol] 62 mg/dL Normal <=150 [facility] Comment on above: Performed By: #### D ATLIPI #### [facility] [address] [address] [address] Anastasiia [place] VLDL CALC 12.4 mg/dL Normal [facility] Comment on above: Performed By: #### D ATLIPI #### [facility] [address] [place] [address] Dr. Anastasiia [place] GLYCOHEMOGLOBIN A1Con 2021 ADA RECOMMENDATION SEE BELOW Normal [facility] Comment on above: Result Comment: ADA RECOMMENDED LIMIT 4.0 - 6.0 ADA THERAPEUTIC TARGET < 7.0 ACTION SUGGESTED > 7.0 Performed By: #### D ATA1C #### [facility] [address] [place] [address] Dr. Anastasiia [place] Glucose [Mass/Vol] 120 mg/dL Normal [facility] Comment on above: Performed By: #### D ATA1C #### [facility] [address] [place] [address] Dr. Anastasiia [place] HbA1c (Bld) [Mass fraction] 5.8 % Normal 4.5-6.2 [facility] Comment on above: Performed By: #### D ATA1C #### [facility] [address] [place] [address] Dr. Anastasiia [place] INSULINon 05-06-2022 Insulin 13.9 uIU/mL Normal 2.6-24.9 [facility] Comment on above: Performed By: #### I NSULIN #### [facility] [address] [place] [address] Dr. Anastasiia [place] CBC AUTO DIFFon 05-05-2022 BASO # 0.0 103/ul Normal 0.0-0.1 [facility] Comment on above: Performed By: #### I SCHUYLER #### [facility] [address] [place] [address] Dr. Anastasiia [place] Basophils/100 WBC (Bld) 0.5 % Normal 0.2-2.0 [facility] Comment on above: Performed By: #### I SCHUYLER #### [facility] [address] [place] [address] Dr. Anastasiia [place] EO # 0.2 103/ul Normal 0.0-0.7 [facility] Comment on above: Performed By: #### I SCHUYLER #### [facility] [address] [place] [address] Dr. Anatsasiia [place] Eosinophils/100 WBC (Bld) 2.7 % Normal 0.9-7.0 [facility] Comment on above: Performed By: #### I SCHUYLER #### [facility] [address] [place] [address] Dr. Anastasiia [place] Erythrocyte distribution width (RBC) [Ratio] 12.7 % Normal 11.0-15.0 [facility] Comment on above: Performed By: #### I SCHUYLER #### [facility] [address] [place] [address] Dr. Anastasiia [place] Hematocrit (Bld) [Volume fraction] 40.7 % Normal 36.0-48.0 [facility] Comment on above: Performed By: #### I SCHUYLER #### [facility] [address] [place] [address] Dr. Anastasiia [place] Hemoglobin (Bld) [Mass/Vol] 13.1 g/dL Normal 12.0-16.0 [facility] Comment on above: Performed By: #### I SCHUYLER #### [facility] [address] [place] [address] Dr. Anastasiia [place] IG # 0.01 10e3/ul Normal 0.00-0.03 [facility] Comment on above: Performed By: #### I SCHUYLER #### [facility] [address] [place] [address] Dr. Anastasiia [place] IG % 0.2 % Normal 0.0-0.5 [facility] Comment on above: Performed By: #### I SCHUYLER #### [facility] [address] [address] [address] Anastasiia [place] LYMPH # 2.2 103/ul Normal 1.2-3.8 [facility] Comment on above: Performed By: #### I SCHUYLER #### [facility] [address] [address] [address] Anastasiia [place] Lymphocytes/100 WBC (Bld) 36.0 % Normal 20.5-60.0 [facility] Comment on above: Performed By: #### I SCHUYLER #### [facility] [address] [place] [address] Dr. Anastasiia [place] MANUAL DIFF REQ NO Normal [facility] Comment on above: Performed By: #### I SCHUYLER #### [facility] [address] [place] [address] Dr. Anastasiia [place] MCH (RBC) [Entitic mass] 30.3 pg Normal 26.7-34.0 [facility] Comment on above: Performed By: #### I SCHUYLER #### [facility] [address] [place] [address] Dr. Anastasiia [place] MCHC (RBC) [Mass/Vol] 32.2 g/dL Normal 29.9-35.2 [facility] Comment on above: Performed By: #### I SCHUYLER #### [facility] [address] [place] [address] Dr. Anastasiia [place] MCV (RBC) [Entitic vol] 94.0 fL Normal 81.0-99.0 [facility] Comment on above: Performed By: #### I SCHUYLER #### [facility] [address] [place] [address] Dr. Anastasiia [place] MONO # 0.6 103/ul Normal 0.3-0.8 [facility] Comment on above: Performed By: #### I SCHUYLER #### [facility] [address] [place] [address] Dr. Anastasiia [place] Monocytes/100 WBC (Bld) 9.8 % Normal 1.7-12.0 [facility] Comment on above: Performed By: #### I SCHUYLER #### [facility] [address] [address] [address] Anastasiia [place] NEUT # 3.1 103/ul Normal 1.4-6.5 [facility] Comment on above: Performed By: #### I SCHUYLER #### [facility] [address] [place] [address] Dr. Anastasiia [place] Neutrophils/100 WBC (Bld) 50.8 % Normal 43.0-75.0 [facility] Comment on above: Performed By: #### I SCHUYLER #### [facility] [address] [place] [address] Dr. Anastasiia [place] Platelet mean volume (Bld) [Entitic vol] 9.6 fL Normal 9.5-13.5 [facility] Comment on above: Performed By: #### I SCHUYLER #### [facility] [address] [place] [address] Dr. Anastasiia [place] PLT 338 103/ul Normal 150-450 [facility] Comment on above: Performed By: #### I SCHUYLER #### [facility] [address] [place] [address] Dr. Anastasiia [place] RBC 4.33 106/ul Normal 4.20-5.40 [facility] Comment on above: Performed By: #### I SCHUYLER #### [facility] [address] [place] [address] Dr. Anastasiia [place] WBC 6.0 103/ul Normal 4.0-11.0 [facility] Comment on above: Performed By: #### I SCHUYLER #### [facility] [address] [place] [address] Dr. Anastasiia [place] FREE THYROXINE INDEX T7on FTI 2.34 Normal 1.30-4.50 [facility] Comment on above: Performed By: #### L IPID, T7, CMP, TSH #### [facility] [address] [place] [address] Dr. Anastasiia [place] T3U 32.0 % Normal 30.0-39.0 [facility] Comment on above: Performed By: #### L IPID, T7, CMP, TSH #### [facility] [address] [place] [address] Dr. Anastasiia [place] T4 [Mass/Vol] 7.30 ug/dL Normal 4.80-13.90 [facility] Comment on above: Performed By: #### L IPID, T7, CMP, TSH #### [facility] [address] [address] [address] Anastasiia [place] GLYCOHEMOGLOBIN A1Con 2021 ADA RECOMMENDATION SEE BELOW Normal [facility] Comment on above: Result Comment: ADA RECOMMENDED LIMIT 4.0 - 6.0 ADA THERAPEUTIC TARGET < 7.0 ACTION SUGGESTED > 7.0 Performed By: #### A 1C #### [facility] [address] [address] [address] Anastasiia [place] Glucose [Mass/Vol] 126 mg/dL Normal [facility] Comment on above: Performed By: #### A 1C #### [facility] [address] [place] [address] Dr. Anastasiia [place] HbA1c (Bld) [Mass fraction] 6.0 % Normal 4.5-6.2 [facility] Comment on above: Performed By: #### A 1C #### [facility] [address] [address] [address] Anastasiia [place] IRONon 05-05-2022 Iron [Mass/Vol] 75.0 ug/dL Normal 50.0-170.0 [facility] Comment on above: Performed By: #### I SCHUYLER #### [facility] [address] [address] [address] Anastasiia [place] LIPID PROFILEon 05-05-2022 CHOL-HDL RATIO NORM SEE BELOW Normal [facility] Comment on above: Result Comment: 3.3 - 4.4 LOW RISK 4.4 - 7.1 AVERAGE RISK 7.1 - 11.0 MODERATE RISK >11.0 HIGH RISK Performed By: #### L IPID, T7, CMP, TSH #### [facility] [address] [address] [address] Anastasiia [place] Cholesterol [Mass/Vol] 217 mg/dL Critically high <=200 [facility] Comment on above: Performed By: #### L IPID, T7, CMP, TSH #### [facility] [address] [address] [address] Anastasiia [place] Cholesterol in HDL [Mass/Vol] 50 mg/dL Normal 40-60 [facility] Comment on above: Performed By: #### L IPID, T7, CMP, TSH #### [facility] [address] [address] [address] Anastasiia [place] Cholesterol in LDL [Mass/Vol] 152.6 mg/dL Normal [facility] Comment on above: Performed By: #### L IPID, T7, CMP, TSH #### [facility] [address] [address] [address] Anastasiia [place] Cholesterol.total/Cho lesterol in HDL [Mass ratio] 4.3 {ratio} Normal [facility] Comment on above: Performed By: #### L IPID, T7, CMP, TSH #### [facility] [address] [address] [address] Anastasiia [place] HDL NORMAL > or = 60 mg/dl - LO W CARDIOVASCULAR RISK <40 mg/dl - HIGH CARDIOVASCULAR RISK Normal [facility] Comment on above: Performed By: #### L IPID, T7, CMP, TSH #### [facility] [address] [address] [address] Anastasiia [place] LDL CALC NORMAL SEE BELOW Normal [facility] Comment on above: Result Comment: <100 mg/dl OPTIMAL 100 - 129 mg/dl NEAR OR ABOVE OPTIMAL 130 - 159 mg/dl BORDERLINE HIGH 160 - 189 mg/dl HIGH >190 mg/dl VERY HIGH Performed By: #### L IPID, T7, CMP, TSH #### [facility] [address] [address] [address] Anastasiia [place] Triglyceride [Mass/Vol] 72 mg/dL Normal <=150 [facility] Comment on above: Performed By: #### L IPID, T7, CMP, TSH #### [facility] [address] [address] [address] Anastasiia [place] VLDL CALC 14.4 mg/dL Normal [facility] Comment on above: Performed By: #### L IPID, T7, CMP, TSH #### [facility] [address] [place] [address] Dr. Anastasiia [place] OCC BLD IMMUNO SCREENon 04-21 OCCULT BLOOD Negative Normal NEGATIVE [facility] Comment on above: Performed By: #### I SCHUYLER #### [facility] [address] [place] [address] Dr. Anastasiia [place] PROF 14(COMP METB)on 022 Albumin [Mass/Vol] 3.5 g/dL Normal 3.4-5.0 [facility] Comment on above: Performed By: #### I SCHUYLER #### [facility] [address] [place] [address] Dr. Anastasiia [place] Albumin/Globulin [Mass ratio] 1.0 {ratio} Normal [facility] Comment on above: Performed By: #### I SCHUYLER #### [facility] [address] [place] [address] Dr. Aanstasiia [place] ALP [Catalytic activity/Vol] 80 U/L Normal 46-116 [facility] Comment on above: Performed By: #### I SCHUYLER #### [facility] [address] [place] [address] Dr. Anastasiia [place] ALT [Catalytic activity/Vol] 26 U/L Normal 14-59 [facility] Comment on above: Performed By: #### I SCHUYLER #### [facility] [address] [place] [address] Dr. Anastasiia [place] Anion gap [Moles/Vol] 9.5 mmol/L Normal [facility] Comment on above: Performed By: #### I SCHUYLER #### [facility] [address] [place] [address] Dr. Anastasiia [place] AST [Catalytic activity/Vol] 16 U/L Normal 15-37 [facility] Comment on above: Performed By: #### I SCHUYLER #### [facility] [address] [place] [address] Dr. Anastasiia [place] Bilirubin [Mass/Vol] 0.5 mg/dL Normal 0.2-1.0 [facility] Comment on above: Performed By: #### I SCHUYLER #### [facility] [address] [address] [address] Anastasiia [place] Calcium [Mass/Vol] 9.2 mg/dL Normal 8.5-10.1 [facility] Comment on above: Performed By: #### I SCHUYLER #### [facility] [address] [place] [address] Dr. Anastasiia [place] Chloride [Moles/Vol] 106 mmol/L Normal 98-107 [facility] Comment on above: Performed By: #### I SCHUYLER #### [facility] [address] [place] [address] Dr. Anastasiia [place] CO2 [Moles/Vol] 29.7 mmol/L Normal 21.0-32.0 [facility] Comment on above: Performed By: #### I SCHUYLER #### [facility] [address] [place] [address] Dr. Anastasiia [place] Creatinine [Mass/Vol] 0.75 mg/dL Normal 0.55-1.02 [facility] Comment on above: Performed By: #### I SCHUYLER #### [facility] [address] [place] [address] Dr. Anastasiia [place] EGFR-AF [place]ORE[place] >60 Normal >=60 [facility] Comment on above: Performed By: #### I SCHUYLER #### [facility] [address] [place] [address] Dr. Anastasiia [place] EGFR-NON AF [place] >60 Normal >=60 [facility] Comment on above: Performed By: #### I SCHUYLER #### [facility] [address] [place] [address] Dr. Anastasiia [place] Globulin (S) [Mass/Vol] 3.4 g/dL Normal [facility] Comment on above: Performed By: #### I SCHUYLER #### [facility] [address] [place] [address] Dr. Anastasiia [place] Glucose [Mass/Vol] 112 mg/dL Critically high 74-106 [facility] Comment on above: Performed By: #### I SCHUYLER #### [facility] [address] [place] [address] Dr. Anastasiia [place] Potassium [Moles/Vol] 4.2 mmol/L Normal 3.5-5.1 [facility] Comment on above: Performed By: #### I SCHUYLER #### [facility] [address] [address] [address] Anastasiia [place] Protein [Mass/Vol] 6.9 g/dL Normal 6.4-8.2 [facility] Comment on above: Performed By: #### I SCHUYLER #### [facility] [address] [address] [address] Anastasiia [place] Sodium [Moles/Vol] 141 mmol/L Normal 136-145 [facility] Comment on above: Performed By: #### I SCHUYLER #### [facility] [address] [place] [address] Dr. Anastasiia [place] Urea nitrogen [Mass/Vol] 17.0 mg/dL Normal 7.0-18.0 [facility] Comment on above: Performed By: #### I SCHUYLER #### [facility] [address] [place] [address] Dr. Anastasiia [place] Urea nitrogen/Creatinine [Mass ratio] 22.7 mg/mg Normal [facility] Comment on above: Performed By: #### I SCHUYLER #### [facility] [address] [place] [address] Dr. Anastasiia [place] TSHon 05-05-2022 TSH 0.887 uIU/mL Normal 0.358-3.740 [facility] Comment on above: Performed By: #### L IPID, T7, CMP, TSH #### [facility] [address] [place] [address] Dr. Anastasiia [place] Vital Signs Date Time Vital Sign Value Performing Clinician Faci litavelino 09-05-2024 09:25-0500 Diastolic blood pressure 77 mm[Hg] Vipul OVERTON [facility] 09-05-2024 09:25-0500 Heart rate 85 /min Vipul OVERTON [facility] 09-05-2024 09:25-0500 Mean blood pressure 98 mm[Hg] Vipul OVERTON [facility] 09-05-2024 09:25-0500 Respiratory rate 15 /min Vipul NILL [facility] 09-05-2024 09:25-0500 SaO2% (BldA) [Mass fraction] 95 % Vipul NILL [facility] 09-05-2024 09:25-0500 Systolic blood pressure 139 mm[Hg] Vipul NILL [facility] 09-05-2024 09:11-0500 Body temperature 97.7 [degF] Vipul NILL [facility] 09-05-2024 09:11-0500 Diastolic blood pressure 82 mm[Hg] Vipul NILL [facility] 09-05-2024 09:11-0500 Heart rate 91 /min Vipul NILL [facility] 09-05-2024 09:11-0500 Mean blood pressure 93 mm[Hg] Vipul NILL [facility] 09-05-2024 09:11-0500 Respiratory rate 19 /min Vipul NILL [facility] 09-05-2024 09:11-0500 SaO2% (BldA) [Mass fraction] 98 % Vipul NILL [facility] 09-05-2024 09:11-0500 Systolic blood pressure 114 mm[Hg] Vipul NILL [facility] 09-05-2024 09:06-0500 Diastolic blood pressure 69 mm[Hg] Vipul NILL [facility] 09-05-2024 09:06-0500 Systolic blood pressure 131 mm[Hg] Vipul NILL [facility] 09-05-2024 09:05-0500 Heart rate 74 /min Vipul NILL [facility] 09-05-2024 09:05-0500 Respiratory rate 20 /min Vipul NILL [facility] 09-05-2024 09:05-0500 SaO2% (BldA) [Mass fraction] 99 % Vipul NILL [facility] 09-05-2024 08:55-0500 Respiratory rate 20 /min Vipul NILL [facility] 09-05-2024 07:45-0500 Blood Pressure Location Vipul NILL [facility] 09-05-2024 07:45-0500 Body temperature 98.06 [degF] Vipul NILL [facility] 09-05-2024 07:45-0500 Respiratory rate 18 /min Vipul NILL [facility] 08-19-2024 15:24-0400 Blood Pressure Location Vipul NILL [facility] [place] 08-19-2024 15:24-0400 Diastolic blood pressure 78 mm[Hg] Vipul NILL [facility] [place] 08-19-2024 15:24-0400 Heart rate 72 /min Vipul NILL [facility] [place] 08-19-2024 15:24-0400 Respiratory rate 16 /min Vipul NILL [facility] 08-19-2024 15:24-0400 Systolic blood pressure 116 mm[Hg] Vipul NILL [facility] Encounters Encounter Date Encounter Type Care Provider Facility Start: 09-05-2024 End: 09-05-2024 ambulatory Vipul OVERTON Facility:[facility] Start: 09-05-2024 End: 09-05-2024 Patient encounter procedure Vipul R NILL [facility] Start: 08-19-2024 End: 08-19-2024 ambulatory Vipul R NILL Facility: [facility] Start: 08-19-2024 End: 08-19-2024 Patient encounter procedure Vipul R NILL [facility] Start: 11-17-2022 End: 11-18-[address] CHARITO DEP [place] Facility:[facility] Start: 08-15-2022 End: 08-16-[address] BERNARD VILLEDA Facility:[facility] Start: 06-17-[address] CHARITO DE PAZ Facility :[facility] Start: 05-08-2022 Encounter for genera l adult medical examination without abnormal findings DR CHARITO DE PAZ [facility] Start: 05-05-2022 End: 05-06-[address] CHARITO DE PAZ Facility:[facility] Start: 05-05-2022 End: 05-06-2022 Encounter for general adult medical examination without abnormal findings DR CHARITO DE PAZ Facility:[facility] Start: 04-14-[address] CHARITO DE PAZ Facility :[facility] Procedures Date Procedure Procedure Detail Performing Clinician Start: 09-05-2024 Colonoscopy Vipul [place] Start: 05-22-2015 Excision of melanoma Mi wendy OVERTON Comment on above: thigh Abdominal hysterectomy Serafin lambert NILL Colonoscopy Vipul NILL Decompression of med mercedes nerve Vipul NILL History of surgical procedure on cervical spine Vipul HENRYL Lateral sphincterotomy Serafin lambert NILL Payers Date Payer Category Payer Private Health Insurance [facility] [id number] 1957 Private Health Insurance [facility] [id number] 1959 Self-pay 1957 Self-pay [id number] 1955 Unknown [id number] 2.16.84 [id number] 1955 Unknown [id number] 2.16.84 [id number] 1955 Unknown [id number] 2.16.84 [id number] 1955 Unknown [id number] 2.16.8 [id number] 1955 Unknown [id number] 2.16.8 [id number] Unknown [id number] 2.16.84 [id number] Unknown [id number] 2.16.84 [id number] Social History Date Type Detail Facility Start: 08-19-2024 Tobacco smoking status Never s moked tobacco (finding) [facility] Tobacco smoking status Never [facility] Sex Assigned At Female [facility] Functional Status Date Assessment Result Facility 09-05-2024 Functional Status N/A [facility] 08-19-2024 Functional Status N/A [facility] Clinical Notes 08-19-2024 to 09-09-2024 Note Date & Type Note Facility 09-09-2024 Note Progress Note-Physic mercedes Patient: COLLINS ROGERS Age: 69 years Sex: Female : 1955 Associated Diagnoses: None Author: Walter Cyr Jr, DO Postoperative Information Postoperative disposition: Postoperative disposition: To PACU. Optimetrix number: Optimetrix number [id number]. Anesthetic utilized: General. Health Status Allergies: Allergic Reactions (Selected) No Known Allergies No Known Medication Allergies Physical Examination Vital Signs 09/05/2024 9:25 EST Heart Rate Monitored 85 bpm Respiratory Rate Monitored 15 br/min Systolic Blood Pressure 139 mmHg Diastolic Blood Pressure 77 mmHg Mean Arterial Pressure, Cuff 98 mmHg SpO2 95 % 09/05/2024 9:11 EST Temperature Temporal Artery 36.5 DegC Heart Rate Monitored 91 bpm Respiratory Rate Monitored 19 br/min Systolic Blood Pressure 114 mmHg Diastolic Blood Pressure 82 mmHg Mean Arterial Pressure, Cuff 93 mmHg SpO2 98 % Pain Assessment: Controlled. General: Awake, Alert, Appropriate. Respiratory: Adequate air exchange. Cardiovascular: Stable, Normal peripheral perfusion. Neurological: Normal sensory function, Normal motor function. Assessment Anesthetic outcome No anesthetic complications noted. Adequate pain relief. able to void without difficulty, able to ambulate with assist, tolerating PO intake, no N/V. Review / Management Condition: Stable. Plan Transfer/Discharge: Transfer/Discharge Discharge when meets criteria ( To home ). [facility] Comment on above: Result Comment: Elec tronically Signed By: Walter Cyr Jr, DO\.br\Date and Time Signed: 09/09/24 13:41 EST 09-05-2024 Evaluation + Plan note Extrac mitchel from: Title:ANES Pre-operative Note - Adult Author:Amos Douglass CRNA Date:09/05/24 Plan [place] [employer]esthesiologists (ASA) physical status classification: Class III. Anesthetic Preoperative Plan: Anesthesia General. [facility] 11-15-2024 Hospital Discharge instructions Patient Education 09/05/2024 09:24:21 Diverticulosis MAGR (CUSTOM) Diverticulosis Many people have small pouches in their colon called diverticulum. The diverticulum bulge outward through weak spots in the colon. You could have one or more of these pouches in the colon. The condition of having these pouches in the colon is called diverticulosis or diverticular disease. Diverticulosis is usually diagnosed by tests to evaluate something else. For example, you may have had a colonoscopy to screen for colon cancer when the diverticulosis was found. Most people with diverticulosis do not have any discomfort or problems. If symptoms develop, they may include mild cramps, bloating, and constipation. A complication of this condition is called diverticulitis. This is when the diverticulum become inflamed and infected. How to treat diverticulosis: Increasing the amount of fiber in the diet may reduce symptoms of diverticulosis and prevent complications such as diverticulitis (infected diverticuli). Fiber keeps stool soft and lowers pressure inside the colon so that bowel contents can move througheasily. You should eat 20 to 35 grams of fiber each day. The table below shows the amount of fiber in some foods that you can easily add to your diet. Adding fiber slowly may decrease the bloating and fullness sometimes felt with an immediate high fiber diet. The doctor may also recommend taking a fiber product such as Citrucel or Metamucil once a day. In the past people with diverticulosis were to avoid nuts, corn, and seeds. This has not been foundto be true. If you find that certain foods create cramping or bloating, avoid that food. Foods high in fiber include: Fresh fruits, fresh vegetables, legumes (beans), whole wheat bread, bran muffins or cereal, and nuts. See the table below for examples of high fiber foods. Remember, your goal is 20- 35 grams per day. Amount of fiber in different foods Food Serving Grams of fiber Fruits Apple (with skin) 1 medium apple 4.4 Banana 1 medium banana 3.1 Oranges 1 orange 3.1 Prunes 1 cup, pitted 12.4 Juices Apple, unsweetened, w/added ascorbic acid 1 cup 0.5 Grapefruit, white, canned, sweetened 1 cup 0.2 Grape, unsweetened, w/added ascorbic acid 1 cup 0.5 [place] 1 cup 0.7 Vegetables Cooked Green beans 1 cup 4.0 Carrots 1/2 cup sliced 2.3 Peas 1 cup 8.8 Potato (baked, with skin) 1 medium potato 3.8 Raw [place] (with peel) 1 cucumber 1.5 Lettuce 1 cup shredded 0.5 Tomato 1 medium tomato 1.5 Spinach 1 cup 0.7 Legumes Baked beans, canned, no salt added 1 cup 13.9 Kidney beans, canned 1 cup 13.6 Mcdaniel beans, canned 1 cup 11.6 Lentils, boiled 1 cup 15.6 Breads, pastas, flours Bran muffins 1 medium muffin 5.2 Oatmeal, cooked 1 cup 4.0 White bread 1 slice 0.6 Whole-wheat bread 1 slice 1.9 Pasta and rice, cooked Macaroni 1 cup 2.5 Rice, brown 1 cup 3.5 Rice, white 1 cup 0.6 Spaghetti (regular) 1 cup 2.5 Nuts Almonds 1/2 cup 8.7 Peanuts 1/2 cup 7.9 Chart from [facility] 2013. SEEK IMMEDIATE MEDICAL CARE IF: You develop abdominal (belly) pain. An oral temperature above _ 101 F__develops. Repeated vomiting occurs. Blood is being passed in stools (bright red or black tarry stools). You develop any bowel problems or changes which you have not had before. Extra Information: To learn how much fiber and other nutrients are in different foods, visit the [place] Department of Agriculture (USDA) National Nutrient Database at: http://www.[employer].usda.gov/fnic/foodcomp/search/ Created using data from the USDA National Nutrient Database for Standard Reference. Available at http://www.[employer].gov/fnic/foodcomp/search/. Information adapted from: [facility] Patient Information 2009 [employer]. [facility] 2012 [email or web address] 09/05/2024 09:24:19 Colonoscopy, Care After Surgery [place] (CUSTOM) Colonoscopy Care After Surgery Please read the instructions outlined below and refer to this sheet in the next few weeks. These discharge instructions provide you with general information on caring for yourself after you leave thespital. Your doctor may also give you specific instructions. While your treatment has been planned according to the most current medical practices available, unavoidable complications occasionally occur. If you have any problems or questions after discharge, please call your doctor. ACTIVITY You may resume your regular activity, but move at a slower pace for the next 24 hours. Take frequent rest periods for the next 24 hours. Walking will help get rid of the air and reduce the bloated feeling in your abdomen (belly). No driving for 24 hours (because of the anesthesia (medicine) used during the test). You may shower. Do not sign any important legal documents or operate any machinery for 24 hours (because of the anesthesia used during the test). NUTRITION Drink plenty of fluids. You may resume your normal diet as instructed by your doctor. Begin with a light meal and progress to your normal diet. Heavy or fried foods are harder to digestand may make you feel nauseated (sick to your stomach). Avoid alcoholic beverages for 24 hours or as instructed. MEDICATIONS You may resume your normal medications unless your doctor tells you otherwise. WHAT YOU CAN EXPECT TODAY Some feelings of bloating in the abdomen. Passage of more gas than usual. Spotting of blood in your stool or on the toilet paper. FOLLOW-UP Your doctor will discuss the results of your test with you. SEEK IMMEDIATE MEDICAL ATTENTION IF: There is more than a spotting of blood in your stool. There is abdominal distention (your abdomen is swollen). There is vomiting. You have a temperature over 101.5 F. There is abdominal pain or discomfort that is severe or gets worse throughout the day. Follow Up Care 08/19/2024 16:17:46 With:Vipul OVERTON Address: [address] [place] [address], [facility] [address] [phone] Business (1) When: only if needed [facility] 11-15-2024 NoteColonoscopy Procedure Report Patient: COLLINS ROGERS Age: 69 years Sex: Female : 1955 Associated Diagnoses: None Author: Vipul OVERTON MD Pre-Procedure Procedure Date 09/05/2024 09:10:00 . Procedure Type: Colonoscopy. Procedure provider Vipul Overton M.D.. Referred by Charito De Paz M.D.. Current history and physical Documented on chart. Colorectal neoplasm risk assessment Average risk. Informed Consent After discussing the rationale, risks and benefits, and alternatives to this procedure, the patient provided signed consent for the procedure. Pre-procedure diagnosis: Age 50 years or over. ASA Classification: Class II. . Monitoring: See anesthesia record. . Procedure The procedure was performed in the hospital. See anesthesia record for sedation given during procedure. Rectal exam was performed and was normal. The patient was positioned starting in the left lateral decubitus position. Endoscope type used was an adult-size. The endoscope was lubricated then introduced through the anus. The scope was advanced to the cecum verified by photographing the appendiceal orifice, verified by photographing the ileocecal valve. No difficulties encountered during the procedure. The bowel preparation quality was good and was adequate (see polyps greater than or equal to 6 millimeters). The patient tolerated the procedure well. Findings Diverticulosis was identified in the sigmoid colon. It is characterized as wide mouth diverticulum.The diverticulosis is severe. Images Procedure images: anal canal rectal veins sigmoid diverticulum ileocecal valve appendiceal orifice . Post-Procedure Complications: none. Estimated blood loss: none. Specimens: none. Devices/ implants: none left in place. Impression and Plan Diagnosis: Diverticulosis of sigmoid colon ([id number]-EC K57.30, Discharge, Medical). Course: Progressing as expected. Recommendations: Repeat colonoscopy:: In 10 years. Follow-up:: if problems/questions. Diet:: High fiber. Medication resumption:: Continue current medications. Return to activities:: After 24 hours. Education and Follow-up: [facility]: Other Comment: Missing Attachment - attachment storage system not supported [id number] Can be viewed in source system Missing Attachment - attachment storage system not supported [id number] Can be viewed in source systemMissing Attachment - attachment storage system not supported [id number] Can be viewed in source systemMissing Attachment - attachment storage system not supported [id number] Can be viewed in source systemMissing Attachment - attachment storage system not supported [id number] Can be viewed in source [phone] NoteProgress Note-Physician Patient: COLLINS ROGERS Age: 69 years Sex: Female : 1955 Associated Diagnoses: None Author: Amos Mckeon CRNA Preoperative Information Anesthesia Preop Info: Time patient last ate or drank 09/05/2024 00:00:00. Health Status Allergies: Allergic Reactions (Selected) No Known Allergies No Known Medication Allergies Current medications: (Selected) Inpatient Medications Ordered Sodium Chloride 0.9% IV Janie 1000 mL 1,000 mL: 1,000 mL, IV, 20 mL/hr, Routine, Start date 09/05/24 6:35:00 EST, 50 hour(s), Total volume (mL): 1,000, 90.2 kg, 2, m2 Documented Medications Documented amLODIPine 5 mg Tab: 5 mg = 1 tab(s), Oral, Daily, 0 Refill(s), Refills(s) 0, High blood pressure losartan 100 mg Tab: 100 mg = 1 tab(s), Oral, Daily, 1 Unknown, 0 Refill(s), Refills(s) 0, High blood pressure Problem list: All Problems Hypertensive disorder / SNOMED CT 6796495263 / Confirmed Anxiety / SNOMED CT 78198665 / Confirmed Depression / SNOMED CT 88574187 / Confirmed Cervical spondylosis / SNOMED CT 9588022538 / Confirmed Spinal stenosis / SNOMED CT 188293749 / Confirmed Hypercholesterolemia / SNOMED CT 56143422 / Confirmed Umbilical hernia / SNOMED CT 8490895174 / Confirmed Diverticular disease / SNOMED CT 7711288875 / Confirmed Positive fecal occult blood test / SNOMED CT 2632982994 / Confirmed Obesity due to excess calories / SNOMED CT 5873595989 / Confirmed Screening for malignant neoplasm of colon / SNOMED CT 015738363 / Confirmed BMI 35.0-35.9,adult / SNOMED CT 673567072 / Confirmed Histories Past Medical History: No resolved past medical history items have been selected or recorded. Social History Social & Psychosocial Habits Alcohol 08/19/2024 Use: Current Type: Beer, Liquor Frequency: 1-2 times per week Substance Abuse 08/19/2024 Risk Assessment: Denies Substance Abuse Tobacco 08/19/2024 Tobacco Use: Never (less than 100 in l Smokeless tobacco use: Never . Physical Examination Airway: Mallampati classification: II (soft palate, fauces, uvula visible). Plan [place] [employer] Anesthesiologists (ASA) physical status classification: Class III. Anesthetic Preoperative Plan: Anesthesia General.[facility] Comment on above:Result Comment: Electronically Signed By: Amos Mckeon CRNA\Date and Time Signed: 09/05/2410:04 [id number] NoteHistory and Physical Patient: COLLINS ROGERS Age: 69 years Sex: Female : 1955 Associated Diagnoses: None Author: Vipul OVERTON MD Subjective no changes to [facility] & [facility] HospitalComment on above:Result Comment: Electronically Signed By: Vipul OVERTON MD\.br\Date and Time Signed: 09/05/24 10:00 [id number] NotePatient Education - Text Diverticulosis Many people have small pouches in their colon called diverticulum. The diverticulum bulge outward through weak spots in the colon. You could have one or more of these pouches in the colon. The condition of having these pouches in the colon is called diverticulosis or diverticular disease. Diverticulosis is usually diagnosed by tests to evaluate something else. For example, you may have had a colonoscopy to screen for colon cancer when the diverticulosis was found. Most people with diverticulosis do not have any discomfort or problems. If symptoms develop, they may include mild cramps, bloating, and constipation. A complication of this condition is called diverticulitis. This is when the diverticulum become inflamed and infected. How to treat diverticulosis: Increasing the amount of fiber in the diet may reduce symptoms of diverticulosis and prevent complications such as diverticulitis (infected diverticuli). Fiber keeps stool soft and lowers pressure inside the colon so that bowel contents can move througheasily. You should eat 20 to 35 grams of fiber each day. The table below shows the amount of fiber in some foods that you can easily add to your diet. Adding fiber slowly may decrease the bloating and fullness sometimes felt with an immediate high fiber diet. The doctor may also recommend taking a fiber product such as Citrucel or Metamucil once a day. In the past people with diverticulosis were to avoid nuts, corn, and seeds. This has not been foundto be true. If you find that certain foods create cramping or bloating, avoid that food. Foods high in fiber include: Fresh fruits, fresh vegetables, legumes (beans), whole wheat bread, bran muffins or cereal, and nuts. See the table below for examples of high fiber foods. Remember, your goal is 20- 35 grams per day. Amount of fiber in different foods Food Serving Grams of fiber Fruits Apple (with skin) 1 medium apple 4.4 Banana 1 medium banana 3.1 Oranges 1 orange 3.1 Prunes 1 cup, pitted 12.4 Juices Apple, unsweetened, w/added ascorbic acid 1 cup 0.5 Grapefruit, white, canned, sweetened 1 cup 0.2 Grape, unsweetened, w/added ascorbic acid 1 cup 0.5 [place] 1 cup 0.7 Vegetables Cooked Green beans 1 cup 4.0 Carrots 1/2 cup sliced 2.3 Peas 1 cup 8.8 Potato (baked, with skin) 1 medium potato 3.8 Raw [place] (with peel) 1 cucumber 1.5 Lettuce 1 cup shredded 0.5 Tomato 1 medium tomato 1.5 Spinach 1 cup 0.7 Legumes Baked beans, canned, no salt added 1 cup 13.9 Kidney beans, canned 1 cup 13.6 Mcdaniel beans, canned 1 cup 11.6 Lentils, boiled 1 cup 15.6 Breads, pastas, flours Bran muffins 1 medium muffin 5.2 Oatmeal, cooked 1 cup 4.0 White bread 1 slice 0.6 Whole-wheat bread 1 slice 1.9 Pasta and rice, cooked Macaroni 1 cup 2.5 Rice, brown 1 cup 3.5 Rice, white 1 cup 0.6 Spaghetti (regular) 1 cup 2.5 Nuts Almonds 1/2 cup 8.7 Peanuts 1/2 cup 7.9 Chart from [facility] 2013. SEEK IMMEDIATE MEDICAL CARE IF: You develop abdominal (belly) pain. An oral temperature above _ 101??? F__develops. Repeated vomiting occurs. Blood is being passed in stools (bright red or black tarry stools). You develop any bowel problems or changes which you have not had before. Extra Information: To learn how much fiber and other nutrients are in different foods, visit the [place] Department of Agriculture (USDA) National Nutrient Database at: http://www.nal.usda.gov/fnic/foodcomp/search/ Created using data from the USDA National Nutrient Database for Standard Reference. Available at http://www.nal.usda.gov/fnic/foodcomp/search/. Information adapted from: [employer]??? Patient Information ???2009 [employer]. [facility] 2012 [email or web address] Colonoscopy Care After Surgery Please read the instructions outlined below and refer to this sheet in the next few weeks. These discharge instructions provide you with general information on caring for yourself after you leave thespital. Your doctor may also give you specific instructions. While your treatment has been planned according to the most current medical practices available, unavoidable complications occasionally occur. If you have any problems or questions after discharge, please call your doctor. ACTIVITY You may resume your regular activity, but move at a slower pace for the next 24 hours. Take frequent rest periods for the next 24 hours. Walking will help get rid of the air and reduce the bloated feeling in your abdomen (belly). No driving for 24 hours (because of the anesthesia (medicine) used during the test). You may shower. Do not sign any important legal documents or operate any machinery for 24 hours (because of the anesthesia used during the test). NUTRITION Drink plenty of fluids. You may resume your normal diet as instructed by your doctor. Beg (more content not included)...[facility]10-[facility]-2024 Note General Surgery Office/Clinic Note Chief Complaint consultation for positive occult stool HPI Staff 69 year old female presents on consultation from Dr. De Paz for positive occult stool completed 07/2023. Patient had cancelled previously scheduled consultation due to concerns of cost of colonoscopy. Denies abdominal or rectal pain. No rectal bleeding or change in bowel habits. Denies nausea or vomiting. No unexplained weight loss. Previous colonoscopy completed greater than 20 years ago and reported normal per patient- operative report unavailable. No known family history of colon cancer. History of Present Illness 69 yo female with h/o htn, hypercholesterolemia, spinal stenosis, cervical spondylosis, referred for colorectal screening, denies change in bms or gross blood in stools; had positive fecal occult blood test 1 year ago; abd operations significant for abdominal hysterectomy, remote colonoscopy reportedly normal, over 20 years ago; no asa or NSAID use; no tobacco use; no fmhx of GI malignancy or IBD. Review of Systems PHQ Score Initial Depression Screen Score: 0 SCORE ROS - Provider Constitutional: no fever, no sweats, no weight loss. Eyes: no glasses, no blurred vision, no visual loss. ENMT: no dentures, no hoarseness, no swallowing difficulties, no hearing loss, no ear infection(s),no nose bleeds. Cardiovascular: normal blood pressure, no chest pain, regular heartbeat, no heart murmur. Respiratory: no shortness of breath, no cough, no asthma, no wheezing. Gastrointestinal: no nausea, no vomiting, no diarrhea, no constipation, no blood in stool, no change in bowel habits, no abdominal pain, no hepatitis. Genitourinary: no kidney stones, no urine infection, no dysuria. Musculoskeletal: no pain, no weakness. Skin: no changing moles, no rash, no skin lumps. Neurologic: no seizures, no epilepsy, no headache. Psychiatric: no emotional or psychiatric problem. Heme/Lymph: no bleeding problems, no anemia, no blood clots, no transfusions. Allergy/Immunologic: no swollen lymph nodes/glands, no IV drug abuse. Other: Additional ROS info: Except as noted in the above Review of Systems and in the History of Present Illness, all other systems have been reviewed and are negative or noncontributory. Physical Exam Vitals & Measurements HR: 72(Peripheral) RR: 16 BP: 116/78 HT: 63 in HT: 160 cm WT: 90.2 kg WT: 198.44 lb BMI: 35.23 HEENT: normal conjunctiva, sclera clear, no scleral icterus, EOM intact, PERRLA, oral mucosa moist without lesions. Neck: trachea midline, no mass, symmetric, no thyromegaly or nodules, no adenopathy Respiratory: lungs CTA, respirations non labored. Cardiovascular: regular rate and rhythm, no murmur, no pedal edema or varicosities. Gastrointestinal: obese, soft, non distended, no tenderness, no masses, no palpable hernias, diastasis recti no, no hepatosplenomegaly; normal bs Lymphatic: no cervical adenopathy, no axillary adenopathy, no inguinal adenopathy. Musculoskeletal: normal gait, digits and nails without infection, nodes, cyanosis, clubbing. Skin: no rashes, no lesions, no ulcers, no subcutaneous nodules, induration. Psychiatric/Neuro: oriented to time, place, person, judgement normal, affect appropriate for age, insight intact, no focal deficits. Tests: labs reviewed, , review of old records completed , Discussed surgical options, risks, and possible complications with patient. Assessment/Plan 1. Screening for malignant neoplasm of colon (Z12.11: Encounter for screening for malignant neoplasm of colon) plan colonoscopy under anesthesia, informed consent obtained. Follow-up No qualifying data available Problem List/Past Medical History Ongoing Anxiety BMI 35.0-35.9,adult Cervical spondylosis Depression Diverticular disease Hypercholesterolemia Hypertensive disorder Obesity due to excess calories Positive fecal occult blood test Screening for malignant neoplasm of colon Spinal stenosis Umbilical hernia Historical No qualifying data Procedure/Surgical History Excision of melanoma (05/2015), Abdominal hysterectomy, Carpal tunnel release, Colonoscopy, Historyof cervical spine surgery, Lateral internal anal sphincterotomy. Medications amLODIPine 5 mg Tab, 5 mg= 1 tab(s), Oral, Daily losartan 100 mg Tab, 100 mg= 1 tab(s), Oral, Daily Allergies No Known Allergies No Known Medication Allergies Social History Alcohol Current, Beer, Liquor, 1-2 times per week, 09/07/2023 Substance Abuse - Denies Substance Abuse, 09/07/2023 Tobacco Never (less than 100 in lifetime) Tobacco Use:. Never Smokeless Tobacco Use:., 08/19/2024 Family History Hypertension: Father. Stroke: Mother.[facility]Comment on above:Result Comment: Electronically Signed By: DALIA FLORES, Vipul Dowling\Date and Time Signed: 08/19/24 15:52 EDTEvaluation + Plan note Future Appointments Appointment Date:09/05/2024 08:30:00 AM Scheduled Provider: Location:[facility] [facility] Appointment Type:Surgery FT [facility] Hospital course Narrative No data available for this section [facility] Hospital Discharge instructions No data available for this section [facility] Progress note No data available for this section [facility] Summary Purpose Family History No Family History Records Found No data available for this section No data available for this section No Family History Records Found Advance Directives No Advanced Directives Records FoundNo Advanced Directives Records Found Additional Source Comments INFORMATION SOURCE (unrecogn ized section and content) DATE CREATED AUTHOR 11/18/2022 [facility] DATE CREATED AUTHOR AUTHOR'S ORGANIZ ATION 09/10/2024 [facility] Patient Care team informatio n (unrecognized section and content) Personnel Name: Charito De Paz MD Address: Address: [address] [place] [address] Personnel Name: Charito De Paz MD Address: Address: [address] [place] [address] FOR RECORDS PERTAINING TO PATIENTS WHO ARE [...] BE BASED ON THE PRIMARY CLINICAL RECORDS. [facility] [employer] [facility]. provides no warranty or guarantee of the accuracy or completeness of information in this document.
== END 2025-05-12 14:30 | disposition home or self-care (01) ==
LOC: MAMMO 14:29
PROVIDERS: PCP Family Medicine; Visit Provider Family Medicine
DX: Z12.31 Encounter for screening mammogram for malignant neoplasm of breast (principal)
CPT/HCPCS: 77063; 77067

== ENCOUNTER 2025-10-20 09:44 | Outpatient (OUT) | payer MEDICARE, SELFPAY ==
--- OUTSIDE RECORDS SUMMARY | 2025-10-20 09:59 | XMS_ITS | CCD ---
Author Organization [facility] Care Team Providers Care Sales Department Manager Name Role Phone ZANDRA, DR MCNEILL Admitting [...] Care Physician Vipul OVERTON Admitting Unavailable NILL, Vipul Steel Attending Unavailable NILL, Vipul Steel Referring Unavailable NILL, Vipul Steel Attending Unavailable Allergies Allergy ClassificationReported Allergen(s)Allergy TypeDate of OnsetReaction(s) Facility (2 sources)LatexDrug allergy (disorder)55-02-9257[facility]ul [facility] Repository (1 source)No Known Medication Allergies; Translations: [No Known Medication Allergies]Propensity to adverse reactions (disorder)[facility] Repository Medications Completed/Discontinued Medications MedicationDrug Class(es)DatesSig (Normalized)Sig (Original)amLODIPine 5 mg oral tablet (2 sources)Dihydropyridine Calcium Channel BlockerStart: 77-28-0192afFTVWKfcr 5 mg Tab 5 mg = 1 tab(s), Oral, Daily, 0 Refill(s), Refills(s) 0, High blood pressure Start Date: 08/22/23 Status: Orderedlosartan potassium 100 mg oral tablet (2 sources)Angiotensin 2 Receptor BlockerStart: 85-31-9334bwks 1 tablet by mouth once daily Problems Problem ClassificationProblemDateDocumented DateEpisodic/ChronicAbdominal hernia (2 sources)Umbilical cnlynx44-14-7683OkzkygjwOptgvos disorders (2 sources)Ymowwnd83-27-6754RrbjncfWkxkhwbav of lipid metabolism (2 sources)Npwkuoojksbxhdpkqrmv68-76-0944ClrawdxBbmvfazqhdlsrk and diverticulitis (3 sources)Diverticular disease; Translations: [Diverticula of intestine]Onset: 042910-93-8125SmdwvtjVwcbutonz hypertension (2 sources)Hypertensive ebqbkfnr35-95-6278NpmrpiqRdwg disorders (2 sources)Depressive acrmbtfx63-17-2331CroftdrZinvo gastrointestinal disorders (2 sources)Occult blood in carhpk86-18-9410BosipsmnQiooq nutritional; endocrine; and metabolic disorders (2 sources)Body mass index 30+ - quoaijx86-60-7720ZaxvaebLuqpl nutritional; endocrine; and metabolic disorders (2 sources)Obesity caused by energy pzdwapwez85-70-0538EjjyswjArnqa screening for suspected conditions (not mental disorders or infectious disease) (1 source)Screening for malignant neoplasm of colon done; Translations: [Encounter for screening for malignant neoplasm of colon]Onset: 08-19-2024 EpisodicSpondylosis; intervertebral disc disorders; other back problems (2 sources)Cervical tqhnepiccqr26-52-2050LumukkfJibvvzgqduj; intervertebral disc disorders; other back problems (2 sources)Spinal ydemymkg72-19-8633FthacdmsRudnvjjcizqr (2 sources)Patient encounter -[id number] Results Test NameValueInterpretationReference RangeFacilityMain OR Intraoperative Record on 37-94-9922Uwgk OR Intraoperative RecordMain OR Intraoperative Record IntraOp Document Type FT Summary Primary Physician: Vipul OVERTON MD Finalized Date/Time: 09/08/24 10:11:45 Pt. Name: COLLINS ROGERS/Sex: 1955 Female Med Rec #: [id number] Physician: Vipul OVERTON MD Financial #: [id number] Pt. Type: O Room/Bed: / Admit/Disch: 09/05/24 [...] Vipul Obando RN, Tru Fox Role Performed FLEET ADMINISTRATOR Surgeon - Primary Vulnerability Assessment Analyst - Primary Time In 09/05/24 08:46:00 09/05/24 08:46:00 09/05/24 08:46:00 Time Out 09/05/24 09:08:00 09/05/24 09:08:00 09/05/24 09:08:00 Procedure COLONOSCOPY(.) COLONOSCOPY(.) COLONOSCOPY(.) Comments Dr. Cyr supervising case Last Modified By: Tru Obando RN, RN, Tru Arrieta RN 09/05/24 09:14:30 09/05/24 [...] Time Out Amos Mckeon CRNA, Given Participants Vipul OVERTON MD, Souter RN, Morgan E, Sparks, Micala E Time Out Complete 09/05/24 08:48:00 [...] TORRES, Tru Fox (more content not included)... [facility] HospitalDis[facility] Instructionson 17-66-6288Oytmwobgn InstructionsDischarge Instructions COLLINS ROGERS :1955 Visit Date:09/05/2024 Inpatient [...] Vipul OVERTON When: Only if needed Where: [address] [place], [place] [address]jamie Lopez, [address] [address]- Business (1) Medications What How Much When Instructions [...] unsweetened, w/added ascorbic acid 1 cup 0.5 Gregg 1 cup 0.7 Vegetables Cooked Green beans 1 cup 4.0 Carrots 1/2 cup sliced 2.3 Peas 1 cup 8.8 Potato (baked, with skin) 1 medium potato 3.8 Raw [place] (with peel) 1 cucumber 1.5 Lettuce 1 cup shredded 0.5 Tomato 1 medium tomato 1.5 Spinach 1 cup 0.7 Legumes Baked beans, canned, no salt added 1 cup 13.9 Kidney beans, canned 1 cup 13.6 Mcdaniel beans, canned 1 cup 11.6 Lentils, boiled 1 cup 15 (more content not included)...[facility] HospitalComment on above:Result Comment: Electronically Signed By: Malini Fulton I\.br\Date and Time Signed: 09/05/24 09:24 ESTInpatient Patient Summaryon 02-12-4341Gpieugwut Patient SummaryInpatient Patient Summary [place] [id number] [facility] [place] Clinical Discharge Instructions PERSON INFORMATION Name: COLLINS ROGERS PHYSICIANS Admitting Physician: Vipul OVERTON MD Attending Physician: Vipul OVERTON MD PCP: Zandra FLORES, Charito Discharge Diagnosis: Diverticulosis of sigmoid colon Comment: PATIENT EDUCATION INFORMATION Instructions: Medication Leaflets: Follow up: With: Address: When: Vipul OVERTON [address] [place] [address], [address], [place] [address] Business (1) , only if needed MEDICATION LIST Medications to Continue with No Changes Other Medications amlodipine (amLODIPine 5 mg Tab) 1 Tablets By Mouth every day. 0 Refill(s). losartan (losartan 100 mg Tab) 1 Tablets By Mouth every day. 1 Unknown, 0 Refill(s). Comment:[facility] HospitalMain OR PACU II Recordon 04-40-8430Ixwn OR PACU II RecordMain OR PACU II Record PACU Phase II Document Type FT Summary Primary Physician: iVpul OVERTON MD Finalized Date/Time: 09/05/24 09:40:29 Pt. Name: COLLINS ROGERS Paty De Leon./Sex: 1955 Female Med Rec #: [id number] Physician: Vipul OVERTON MD Financial #: [id number] Pt. Type: O Room/Bed: / Admit/Disch: 09/05/24 [...] and monitors body temperature Evaluates postoperative respiratory statusEvaluates postoperative cardiac status Evaluates postoperative neurological status [...] individualized perioperative plan of care The patient's rightto privacy is maintained The patient's value system, [...] with or improved from baseline levels established preoperativelyThe patient's cardiovascular status is consistent with or improved from baseline levels established preoperatively The patient's neurological status is consistent with or improved from baseline levels established preoperatively The patient demonstrates and/or reports adequate pain control throughout the perioperative period The patient received appropriate medication(s), safely administered during the perioperativeperiod Finalized By: Malini Fulton I Document Signatures Signed By: Malini Fulton I 09/05/24 09:40NormMary Rutan HospitalMain OR Preoperative Recordon [id number] OR Preoperative RecordMain OR Preoperative Record Holding Area Document Type FT Summary Primary Physician: Vipul OVERTON MD Finalized Date/Time: 09/05/24 07:45:20 Pt. Name: SUECOLLINS/Sex: 1955 Female Med Rec #: [id number] Physician: Vipul OVERTON MD Financial #: [id number] Pt. Type: O Room/Bed: / Admit/Disch: 09/05/24 [...] or her perioperative plan of care The patient'sright to privacy is maintained Surgery Checklist FT [...] Signatures Signed By: Tru Obando RN 09/05/24 07:45[facility] HospitalOutpatient Surgery Discharge Instructionon 32-49-3703Fuxtosjmtg Surgery Discharge InstructionOutpatient Surgery Discharge Instruction [place] [id number] Patient Discharge Instructions PERSON INFORMATION Name: COLLINS ROGERS Date of : 1955 Current Date: 09/05/2024 09:10:26 PHYSICIANS Admitting Physician: Vipul OVERTON MD Discharge Diagnosis: Diverticulosis of sigmoid colon COLLINS ROGERS has been given the following list of [...] THE NEAREST EMERGENCY ROOM OR CALL 911 ISUE KIM L, have received the attached patient education materials/instructions and have verbalized understanding: May we do a follow up call? Yes No I was present when discharge instructions were given Patient Signature Date Clinican/Nurse Signature Date Follow up: With: Address: When: Vipul Lopez, [address], [facility] [address] [place] [id number] Business (1) , only if needed Pharmacy Information: You may receive a survey from Tamara Vasquez asking you to rate your care experience. Your feedback is important and will help us understand what we do well and how we can improve the quality of care we provide to you, your loved ones and our community. It???s an honor to serve you. Thank you for choosing [facility] HERE ARE THE MEDICATION CHANGES THAT OCCURRED DURING YOUR HOSPITAL STAY Medications to Continue with No Changes Other Medications amlodipine (amLODIPine 5 mg Tab) 1 Tablets By Mouth every day. 0 Refill(s). losartan (losartan 100 mg Tab) 1 Tablets By Mouth every day. 1 Unknown, 0 Refill(s). PATIENT EDUCATION INFORMATION Instructions: Medication Leaflets:[facility] HospitalReminder[facility]2024 RemindersReminders From: Pat Douglass LPN To: N - Clinical; Sent: 09/05/2024 14:23:49 EST Show up: 08/05/2034 07:00:00 EDT Subject: colonoscopy recall Due Date/Time: 09/05/2034 07:00:00 EST Reminder/Recall Patient due for screening colonoscopy 09/05/2034.[facility] HospitalAmbulatory Visit Summaryon 74-80-8918Suqnbdegdp Visit SummaryAmbulatory Visit Summary COLLINS ROGERS :1955 Visit Date:08/19/2024 [...] you for choosing us for your care. Genesis HospitalDAT - LIPID PROFILEon 11-17-2022 CHOL-HDL RATIO NORMSEE [facility] LimaComment on above:Result Comment: 3.3 - 4.4 LOW RISK 4.4 - 7.1 AVERAGE RISK 7.1 - 11.0 MODERATE RISK >11.0 HIGH RISKPerformed By: #### DATLIPI #### [facility] [address] [place], [place] [address] Dr. Anastasiia MontanaCholesterol [Mass/Vol]208 mg/dLCritically high<=200The [facility] on above:Performed By: #### DATLIPI #### [facility] [address] [place], [place] [address] Dr. Anastasiia MontanaCholesterol in HDL [Mass/Vol]73 mg/dLCritically oqgn87-23Ppq Gordon HospitalComment on above:Performed By: #### DATLIPI #### [facility] [address] [place] [address] [address] Anastasiia MontanaCholesterol in LDL [Mass/Vol]125.0 mg/dLOhioHealth Van Wert HospitalComment on above:Performed By: #### DATLIPI #### [facility] [address] [place] [address] [address] Anastasiia Dennis.total/Cholesterol in HDL [Mass ratio]2.8 {ratio} NormalUniversity Hospitals Tripoint Medical CenterCommymichigan medical center gladwin on above:Performed By: #### DATLIPI #### [facility] [address] [place] [address] Dr. Anastasiia Jacinto NORMAL> or = 60 mg/dl - LOW CARDIOVASCULAR RISK <40 mg/dl - HIGH CARDIOVASCULAR RISKOhioHealth Van Wert HospitalComment on above:Performed By: #### DATLIPI #### [facility] [address] [place] [address] Dr. Anastasiia MontanaLDL CALC NORMALSEE BELOWOhioHealth Van Wert HospitalComment on above:Result Comment: <100 mg/dl OPTIMAL 100 - 129 mg/dl NEAR OR ABOVE OPTIMAL 130 - 159 mg/dl BORDERLINE HIGH 160 - 189 mg/dl HIGH >190 mg/dl VERY HIGH Performed By: #### DATLIPI #### [facility] [address] [place] [address] Dr. Anastasiia MontanaTriglyceride [Mass/Vol]50 mg/dLNormal<=150The [facility] Comment on above:Performed By: #### DATLIPI #### [facility] [address] [place] [address] Dr. Anastasiia CastañedaLDL CALC10.0 mg/dLNoFulton County Health CenterComment on above: Performed By: #### DATLIPI #### [facility] [address] [place] [address] Dr. Anastasiia MontanaGLYCOHEMOGLOBIN A1Con 61-69-3698GRY RECOMMENDATIONSEE BELOWWvumedicine Harrison Community HospitalCommymichigan medical center gladwin on above:Result Comment: ADA RECOMMENDED LIMIT 4.0 - 6.0 ADA THERAPEUTIC TARGET < 7.0 ACTION SUGGESTED > 7.0Performed By: #### DATA1C #### [facility] [address] [place] [address] Dr. Anastasiia MontanaGlucose [Mass/Vol]117 mg/dLNoFulton County Health CenterComment on above:Performed By: #### DATA1C #### [facility] [address] [place] [address] Dr. Anastasiia MontanaHbA1c (Bld) [Mass fraction]5.7 %Normal4.5-6.2The [facility] CenterComment on above:Performed By: #### DATA1C #### [facility] [address] [place] [address] Dr. Anastasiia Yoder - LIPID PROFILEon 65-24-9387NDLX-HDL RATIO NORMSEE BELOW NormalThe [facility] Medical CenterCommymichigan medical center gladwin on above:Result Comment: 3.3 - 4.4 LOW RISK 4.4 - 7.1 AVERAGE RISK 7.1 - 11.0 MODERATE RISK >11.0 HIGH RISKPerformed By: #### DATLIPI #### [facility] [address] [place] [address] Dr. Anastasiia MontanaCholesterol [Mass/Vol]191 mg/dLNormal<=200The [facility] Comment on above:Performed By: #### DATLIPI #### [facility] [address] [place] [address] Dr. Anastasiia MontanaCholesterol in HDL [Mass/Vol]55 mg/lMUflzde47-72Ajz [facility] CenterComment on above:Performed By: #### DATLIPI #### [facility] [address] [place] [address] Dr. Anastasiia Parekhesterol in LDL [Mass/Vol]123.6 mg/dLNoFulton County Health CenterComment on above:Performed By: #### DATLIPI #### [facility] [address] [place] [address] Dr. Anastasiia MontanaCholesterol.total/Cholesterol in HDL [Mass ratio]3.5 {ratio} NormalThe [facility] CenterComment on above:Performed By: #### DATLIPI #### [facility] [address] [place] [address] [address] Anastasiia Jacinto NORMAL> or = 60 mg/dl - LOW CARDIOVASCULAR RISK <40 mg/dl - HIGH CARDIOVASCULAR RISKOhioHealth Van Wert HospitalCommymichigan medical center gladwin on above:Performed By: #### DATLIPI #### [facility] [address] [place] [address] [address] Anastasiia MontanaLDL CALC NORMALSEE BELOWOhioHealth Van Wert HospitalComment on above:Result Comment: <100 mg/dl OPTIMAL 100 - 129 mg/dl NEAR OR ABOVE OPTIMAL 130 - 159 mg/dl BORDERLINE HIGH 160 - 189 mg/dl HIGH >190 mg/dl VERY HIGH Performed By: #### DATLIPI #### [facility] [address] [place] [address] Dr. Anastasiia MontanaTriglyceride [Mass/Vol]62 mg/dLNormal<=150The [facility] Comment on above:Performed By: #### DATLIPI #### [facility] [address] [place] [address] [address] Anastasiia MontanaVLDL CALC12.4 mg/dLNoFulton County Health CenterComment on above: Performed By: #### DATLIPI #### [facility] [address] [place] [address] Dr. Anastasiia MontanaGLYCOHEMOGLOBIN A1Con 09-97-8391RYO RECOMMENDATIONSEE BELOWWvumedicine Harrison Community HospitalCommymichigan medical center gladwin on above:Result Comment: ADA RECOMMENDED LIMIT 4.0 - 6.0 ADA THERAPEUTIC TARGET < 7.0 ACTION SUGGESTED > 7.0Performed By: #### DATA1C #### [facility] [address] [place] [address] [address] Anastasiia MontanaGlucose [Mass/Vol]120 mg/dLOhioHealth Van Wert HospitalCommymichigan medical center gladwin on above:Performed By: #### DATA1C #### [facility] [address] [place] [address] Dr. Anastasiia MontanaHbA1c (Bld) [Mass fraction]5.8 %Normal4.5-6.2[facility] Tripoint Medical CenterComment on above:Performed By: #### DATA1C #### [facility] [address] [place] [address] Dr. Anastasiia MontanaINSULINon 57-19-3045Poovnuw97.9 uIU/mLNormal2.6-24.9The [facility] CenterComment on above:Performed By: #### INSULIN #### [facility] [address] [place] [address] Dr. Anastasiia Chowdhury AUTO DIFFon 63-04-4910CXHD #0.0 103/ulNormal0.0-0.1The [facility] CenterComment on above:Performed By: #### IRON #### [facility] [address] [place] [address] Dr. Anastasiia MontanaBasophils/100 WBC (Bld)0.5 %Normal0.2-2.0[facility] Comment on above:Performed By: #### IRON #### [facility] [address] [place] [address] Dr. Anastasiia SeguraO #0.2 103/ulNormal0.0-0.7The [facility] CenterComment on above: Performed By: #### IRON #### [facility] [address] [place] [address] Dr. Anastasiia Seguraosinophils/100 WBC (Bld)2.7 %Normal0.9-7.0The [facility] Comment on above:Performed By: #### IRON #### [facility] [address] [place] [address] Dr. Anastasiia Segurarythrocyte distribution width (RBC) [Ratio]12.7 %Akpkic68.0-15.0 The [facility] CenterComment on above:Performed By: #### IRON #### [facility] [address] [place] [address] Dr. Anastasiia MontanaHematocrit (Bld) [Volume fraction]40.7 %Dwclji43.0-48.0The [facility] CenterComment on above:Performed By: #### IRON #### [facility] [address] [place] [address] Dr. Anastasiia MontanaHemoglobin (Bld) [Mass/Vol]13.1 g/kTZwhqug68.0-16.0The [facility] CenterComment on above:Performed By: #### IRON #### [facility] [address] [place] [address] Dr. Anastasiia Monet #0.01 10e3/ulNormal0.00-0.03The [facility] CenterComment on above:Performed By: #### IRON #### [facility] [address] [place] [address] Dr. Anastasiia Monet %0.2 %Normal0.0-0.5The [facility] CenterComment on above: Performed By: #### IRON #### [facility] [address] [place] [address] Dr. Anastasiia Matamoros #2.2 103/ulNormal1.2-3.8The [facility] CenterComment on above:Performed By: #### IRON #### [facility] [address] [place] [address] Dr. Anastasiia Thomashocytes/100 WBC (Bld)36.0 %Mhnbjj09.5-60.0The [facility] CenterComment on above:Performed By: #### IRON #### [facility] [address] [place] [address] Dr. Anastasiia ReyesUAL DIFF REQNONormalThe [facility] CenterComment on above: Performed By: #### IRON #### [facility] [address] [place] [address] Dr. Anastasiia Best (RBC) [Entitic mass]30.3 vgCqczld29.7-34.0The [facility] CenterComment on above:Performed By: #### IRON #### [facility] [address] [place] [address] Dr. Anastasiia Best (RBC) [Mass/Vol]32.2 g/oYLsevor42.9-35.2The Gordon HospitalComment on above:Performed By: #### IRON #### [facility] [address] [place] [address] Dr. Anastasiia BestV (RBC) [Entitic vol]94.0 rVZvrvqg99.0-99.0The [facility] CenterComment on above:Performed By: #### IRON #### [facility] [address] [place] [address] Dr. Anastasiia Ordonez #0.6 103/ulNormal0.3-0.8The [facility] CenterComment on above:Performed By: #### IRON #### [facility] [address] [place] [address] Dr. Anastasiia Mendozaocytes/100 WBC (Bld)9.8 %Normal1.7-12.0The [facility] Comment on above:Performed By: #### IRON #### [facility] [address] [place] [address] Dr. Anastasiia Weber #3.1 103/ulNormal1.4-6.5The [facility] CenterComment on above:Performed By: #### IRON #### [facility] [address] [place] [address] Dr. Anastasiia Michelleutrophils/100 WBC (Bld)50.8 %Rwitjx86.0-75.0The [facility] CenterComment on above:Performed By: #### IRON #### [facility] [address] [place] [address] Dr. Anastasiia Arboleda mean volume (Bld) [Entitic vol]9.6 fLNormal9.5-13.5The [facility] CenterComment on above:Performed By: #### IRON #### [facility] [address] [place] [address] Dr. Anastasiia MontanaPLT338 103/pbBjqbny435-033Mqs [facility] CenterComment on above: Performed By: #### IRON #### [facility] [address] [place] [address] Dr. Anastasiia MontanaRBC4.33 106/ulNormal4.20-5.40The [facility] CenterComment on above:Performed By: #### IRON #### [facility] [address] [place] [address] Dr. Anastasiia MontanaWBC6.0 103/ulNormal4.0-11.0The [facility] CenterComment on above: Performed By: #### IRON #### [facility] [address] [place] [address] [address] Anastasiia MontanaFRBYRON THYROXINE INDEX T7on 85-33-8873UQE8.56Exscox8.30-4.50The [facility] CenterComment on above:Performed By: #### LIPID, T7, CMP, TSH #### [facility] [address] [place] [address] [address] Anastasiia MontanaT3U32.0 %Lxaavp44.0-39.0The [facility] CenterComment on above: Performed By: #### LIPID, T7, CMP, TSH #### [facility] [address] [place] [address] [address] Anastasiia MontanaT4 [Mass/Vol]7.30 ug/dLNormal4.80-13.90The [facility] Comment on above:Performed By: #### LIPID, T7, CMP, TSH #### [facility] [address] [place] [address] Dr. Anastasiia MontanaGLYCOHEMOGLOBIN A1Con 74-02-1648CKD RECOMMENDATIONSEE BELOWNormal The [facility] CenterComment on above:Result Comment: ADA RECOMMENDED LIMIT 4.0 - 6.0 ADA THERAPEUTIC TARGET < 7.0 ACTION SUGGESTED > 7.0Performed By: #### A1C #### [facility] [address] [place] [address] Dr. Anastasiia MontanaGlucose [Mass/Vol]126 mg/dLNormalThe [facility] CenterComment on above:Performed By: #### A1C #### [facility] [address] [place] [address] [address] Anastasiia MontanaHbA1c (Bld) [Mass fraction]6.0 %Normal4.5-6.2The [facility] CenterComment on above:Performed By: #### A1C #### [facility] [address] [place] [address] Dr. Anastasiia Do 42-08-5290Loae [Mass/Vol]75.0 ug/tGNxcmqq18.0-170.0[facility] on above:Performed By: #### IRON #### [facility] [address] [place] [address] Dr. Anastasiia Rowe PROFILEon 81-24-5082PISI-HDL RATIO NORMSEE [facility] LimaCommymichigan medical center gladwin on above:Result Comment: 3.3 - 4.4 LOW RISK 4.4 - 7.1 AVERAGE RISK 7.1 - 11.0 MODERATE RISK >11.0 HIGH RISKPerformed By: #### LIPID, T7, CMP, TSH #### [facility] [address] [place] [address] Dr. Anastasiia Parekhesterol [Mass/Vol]217 mg/dLCritically high<=200The [facility] on above:Performed By: #### LIPID, T7, CMP, TSH #### [facility] [address] [place] [address] Dr. Anastasiia Geeol in HDL [Mass/Vol]50 mg/iZKqqxew18-14PggKeenan Private Hospital on above:Performed By: #### LIPID, T7, CMP, TSH #### [facility] [address] [place] [address] Dr. Anastasiia Dennis in LDL [Mass/Vol]152.6 mg/dLLicking Memorial Hospital on above:Performed By: #### LIPID, T7, CMP, TSH #### [facility] [address] [place] [address] Dr. Anastasiia Dennis.total/Cholesterol in HDL [Mass ratio]4.3 {ratio} NormalKeenan Private Hospital on above:Performed By: #### LIPID, T7, CMP, TSH #### [facility] [address] [place] [address] Dr. Anastasiia Jacinto NORMAL> or = 60 mg/dl - LOW CARDIOVASCULAR RISK <40 mg/dl - HIGH CARDIOVASCULAR RISKLicking Memorial Hospital on above:Performed By: #### LIPID, T7, CMP, TSH #### [facility] [address] [place] [address] Dr. Anastasiia Arzola CALC NORMALSEE BELOWNoFulton County Health CenterComment on above:Result Comment: <100 mg/dl OPTIMAL 100 - 129 mg/dl NEAR OR ABOVE OPTIMAL 130 - 159 mg/dl BORDERLINE HIGH 160 - 189 mg/dl HIGH >190 mg/dl VERY HIGH Performed By: #### LIPID, T7, CMP, TSH #### [facility] [address] [place] [address] Dr. Anastasiia MontanaTriglyceride [Mass/Vol]72 mg/dLNormal<=150The [facility] Comment on above:Performed By: #### LIPID, T7, CMP, TSH #### [facility] [address] [place] [address] Dr. Anastasiia MontanaVLDL CALC14.4 mg/dLNoFulton County Health CenterComment on above: Performed By: #### LIPID, T7, CMP, TSH #### [facility] [address] [place] [address] Dr. Anastasiia Lange BLD IMMUNO SCREENon 09-23-3312NGPPSD BLOODNegativeNormal NEGATIVEThe [facility] Medical CenterComment on above:Performed By: #### IRON #### [facility] [address] [place] [address] Dr. Anastasiia Garcia 14(COMP METB)on 97-21-7973Yywtzny [Mass/Vol]3.5 g/dLNormal 3.4-5.0The [facility] CenterComment on above:Performed By: #### IRON #### [facility] [address] [place] [address] Dr. Anastasiia MontanaAlbumin/Globulin [Mass ratio]1.0 {ratio}NormalThe [facility] Medical CenterCommymichigan medical center gladwin on above:Performed By: #### IRON #### [facility] [address] [place] [address] Dr. Anastasiia JenkinsP [Catalytic activity/Vol]80 U/HInhuya26-494Fiz [facility] CenterComment on above:Performed By: #### IRON #### [facility] [address] [place] [address] Dr. Anastasiia Mckeon [Catalytic activity/Vol]26 U/LLrfeut90-58Vrn [facility] CenterComment on above:Performed By: #### IRON #### [facility] [address] [place] [address] Dr. Anastasiia Devlinon gap [Moles/Vol]9.5 mmol/LNormalThe [facility] CenterComment on above:Performed By: #### IRON #### [facility] [address] [address] [address] Anastasiia MontanaAST [Catalytic activity/Vol]16 U/TOmqgnr19-98Uwo [facility] CenterComment on above:Performed By: #### IRON #### [facility] [address] [place] [address] Dr. Anastasiia MontanaBilirubin [Mass/Vol]0.5 mg/dLNormal0.2-1.0The [facility] Comment on above:Performed By: #### IRON #### [facility] [address] [place] [address] Dr. Anastasiia MontanaCalcium [Mass/Vol]9.2 mg/dLNormal8.5-10.1The [facility] Comment on above:Performed By: #### IRON #### [facility] [address] [place] [address] Dr. Anastasiia MontanaChloride [Moles/Vol]106 mmol/NLmtbtw86-344Beu [facility] Comment on above:Performed By: #### IRON #### [facility] [address] [place] [address] Dr. Anastasiia MontanaCO2 [Moles/Vol]29.7 mmol/ZDjmqyx01.0-32.0The [facility] Comment on above:Performed By: #### IRON #### [facility] [address] [place] [address] Dr. Anastasiia MontanaCreatinine [Mass/Vol]0.75 mg/dLNormal0.55-1.02The [facility] CenterComment on above:Performed By: #### IRON #### [facility] [address] [place] [address] Dr. Anastasiia SeguraGFR-AF BRUNEIAN>60Normal>=60The [facility] CenterComment on above:Performed By: #### IRON #### [facility] [address] [address] [address] Anastasiia SeguraGFR-NON AF BRUNEIAN>60Normal>=60The [facility] CenterComment on above:Performed By: #### IRON #### [facility] [address] [address] [address] Anastasiia MontanaGlobulin (S) [Mass/Vol]3.4 g/dLNormKettering Health HamiltonComment on above:Performed By: #### IRON #### [facility] [address] [address] [address] Anastasiia MontanaGlucose [Mass/Vol]112 mg/dLCritically foys41-384Tuw [facility] CenterComment on above:Performed By: #### IRON #### [facility] [address] [address] [address] Anastasiia MontanaPotassium [Moles/Vol]4.2 mmol/LNormal3.5-5.1The [facility] Comment on above:Performed By: #### IRON #### [facility] [address] [address] [address] Anastasiia MontanaProtein [Mass/Vol]6.9 g/dLNormal6.4-8.2[facility] Comment on above:Performed By: #### IRON #### [facility] [address] [address] [address] Anastasiia MontanaSodium [Moles/Vol]141 mmol/EJyikyr290-267BwmUniversity Hospitals Tri[facility] Center Comment on above:Performed By: #### IRON #### [facility] [address] [address] [address] Anastasiia MontanaUrea nitrogen [Mass/Vol]17.0 mg/dLNormal7.0-18.0The [facility] CenterComment on above:Performed By: #### IRON #### [facility] [address] [address] [address] Anastasiia MontanaUrea nitrogen/Creatinine [Mass ratio]22.7 mg/mgNormalThe [facility] CenterComment on above:Performed By: #### IRON #### [facility] [address] [place], [place] [address] Dr. Anastasiia Leo 48-88-6922DYR4.887 uIU/mLNormal0.358-3.740The [facility] Medical CenterComment on above:Performed By: #### LIPID, T7, CMP, TSH #### [facility] [address] [id number] Anastasiia Montana Vital Signs Date TimeVital SignValuePerforming PvmywavynLmhdfuxb12-50-0895 09:25-0500 Diastolic blood ldjkskae26 mm[Hg]Vipul HENRYL [facility]11-15-2024 09:25-0500Heart rate85 /minMichael NILL [facility]11-15-2024 09:25-0500Mean blood aeouwedk56 mm[Hg]Vipul NILL [facility]11-15-2024 09:25-0500 Respiratory rate15 /minMichael NILL [facility]11-15-2024 09:25-9631MpB1% (BldA) [Mass fraction]95 %Vipul NILL [facility]11-15-2024 09:25-0500 Systolic blood zyhrwltt264 mm[Hg]Vipul NILL [facility]11-15-2024 09:11-0500Body dopoiiekaom62.7 [degF]Vipul NILL [facility]11-15-2024 09:11-0500 Diastolic blood yvvawcho54 mm[Hg]Vipul NILL [facility]11-15-2024 09:11-0500Heart rate91 /minMichael NILL [facility]11-15-2024 09:11-0500Mean blood omtidztz72 mm[Hg]Vipul NILL [facility]11-15-2024 09:11-0500 Respiratory rate19 /minMichael NILL [facility]11-15-2024 09:11-0841SuY0% (BldA) [Mass fraction]98 %Vipul NILL [facility]11-15-2024 09:11-0500 Systolic blood lvlplebz099 mm[Hg]Vipul NILL [facility]11-15-2024 09:06-0500 Diastolic blood vgucoeuc31 mm[Hg]Vipul NILL [facility]11-15-2024 09:06-0500 Systolic blood iokiiqeu012 mm[Hg]Vipul NILL [facility]11-15-2024 09:05-0500Heart rate74 /minMichael NILL [facility]11-15-2024 09:05-0500 Respiratory rate20 /minMichael NILL [facility]11-15-2024 09:05-1454UxX9% (BldA) [Mass fraction]99 %Vipul NILL [facility]11-15-2024 08:55-0500 Respiratory rate20 /minMichael NILL [facility]11-15-2024 07:45-0500Blood Pressure LocationMichael NILL [facility]11-15-2024 07:45-0500Body ijimzbckwtr55.06 [degF]Vipul NILL [facility]11-15-2024 07:45-0500 Respiratory rate18 /minMichael NILL [facility]10-29-2024 15:24-0400Blood Pressure LocationMichael NILL 333-1764Cibvkr-YnjlrTri[facility]10-29-2024 15:24-0400Diastolic blood mm[Hg]Vipul NILL 342-4693Ealhkt-CtmmbTrihealth [facility]ar[facility] Hospital10-29-2024 15:24-0400Heart rate72 /minMichael NILL 357-2634Wdkmda-IdxzaTrihealth [facility]10-29-2024 15:24-0400Respiratory rate16 /minMichael NILL 751-8132Ryihvy-IhzedTrihealth [facility]10-29-2024 15:24-0400Systolic blood qyydmcxe479 mm[Hg]Vipul NILL 216-9257Kgdqyk-AkqeaTrihealth Good Samaritan Hospital Encounters Encounter DateEncounter TypeCare ProviderFacilityStart: 09-05-2024 End: 52-22-1698edrxausxckFxruave R NILLFacility:FTMCStart: 09-05-2024 End: 00-05-6163Orgwkcz encounter procedureMichael R NILL [facility] Start: 08-19-2024 End: 25-21-2266qrsxvncqcdHvdljvm R NILLFacility: [place]vueStart: 08-19-2024 End: 65-37-0193Tawvjmb encounter procedureMichael R NILL 749-1226Gjjmbx-HlrslKettering Health Hamilton [facility] Start: 11-17-2022 End: 79-63-5937swpgeguickNG CHARITO HOYFacility:U0Exsew: 08-15-2022 End: 53-19-4055xaltdxmvzpJZ NONE LISTED REQUESTFacility:W9Ohaxe: 06-17-2022 ambulatoryDR CHARITO HOYFacility:J5Noopl: 37-56-1816Nmrabromb for general adult medical examination without abnormal findingsDR CHARITO BARBERKettering Memorial Hospital Start: 05-05-2022 End: 28-97-1267uwkucylksfBX CHARITO HOYFacility:A3Rsigo: 05-05-2022 End: 07-41-7663Lzmsydniu for general adult medical examination without abnormal findingsDR CHARITO HOYFacility:F9Nrknu: 80-77-3378wzgfozslgbPJ CHARITO HOY Facility: Procedures DateProcedureProcedure DetailPerforming ClinicianStart: 95-46-8969Bofqmxivbip Vipul NILL Start: 72-18-8002Bawgbjcn of melanomaMichael NILL Comment on above:thighAbdominal hysterectomyMichael NILL ColonoscopyMichael NILL Decompression of median nerveMichael NILL History of surgical procedure on cervical spineMichael NILL Lateral sphincterotomyMichael NILL Payers DatePayer CategoryPayerPolicy [id number] Health [id number] Health [id number]-[id number] 2..840.1.120419.3.579.2.593 [id number] 2.840.1.343905.3.579.2.912 [id number] 2.840.1.826486.3.57[id number] 2..840.1.839839.3.57[id number] 2.16.840.1.5[id number] 2.16.840.1.411554.3.579.2.593Unknown [id number] 2.16.840.1.282656.3.579.2.593 Social History DateTypeDetailFacilityStart: 72-59-6613Bvkzwgj smoking statusNever smoked tobacco (finding)[facility] TroyevueTobacco smoking status NeverSt. Elizabeth HospitalueSex Assigned At BirthFeOhioHealth Hardin [facility] Hospital Functional Status HqurJrooiejqfySqcaulBrntoiyr26-62-5891Vdzbcaefet StatusN/[facility]10-29-2024Functional StatusN/[facility] Clinical Notes 08-19-2024 to 09-09-2024 Note Date & LxyiQqirXsogstnv81-43-6021 NoteProgress Note-Physician Patient: COLLINS ROGERS Age: 69 years Sex: Female : 1955 Associated Diagnoses: None Author: Walter Cyr Jr, DO Postoperative Information Postoperative disposition: Postoperative disposition: To PACU. Optimetrix number: Optimetrix number [id number]. Anesthetic utilized: General. Health Status Allergies: Allergic [...] Discharge when meets criteria ( To home ).[facility]tering HealthComment on above:Result Comment: Electronically Signed By: Walter Cyr Jr, DO\.ana m\Date and Time Signed: 09/09/24 13:41 EST 09-05-2024 Evaluation + Plan noteExtracted from:Title:ANES Pre-operative Note - AdultAuthor:Amos Mckeon CRNA.Date:09/05/24 Plan [place] [employer] Anesthesiologists (ASA) physical status classification: Class III. Anesthetic Preoperative Plan: Anesthesia General.[facility] 11-15-2024 Hospital Discharge instructions Patient Education 09/05/2024 [...] unsweetened, w/added ascorbic acid 1 cup 0.5 Gregg 1 cup 0.7 Vegetables Cooked Green beans 1 cup 4.0 Carrots 1/2 cup sliced 2.3 Peas 1 cup 8.8 Potato (baked, with skin) 1 medium potato 3.8 Raw [place] (with peel) 1 cucumber 1.5 Lettuce 1 [...] 8.7 Peanuts 1/2 cup 7.9 [facility] SEEK [facility] C[facility] IF: You [...] Reference. Available at http://www.nal.usda.gov/fnic/foodcomp/search/. Information adapted from: [facility] Patient Information 2009 [employer]. AttorneyFee 2012 [email or web address]://[email or web address].[email or web address] AI/[email or web address]-the-[email or web address] 09/05/2024 09:24:19 Colonoscopy, Care After Surgery Salam (CUSTOM) Colonoscopy Care After Surgery Please read [...] Up Care 08/19/2024 16:17:46 With:Vipul OVERTON Address: [address] [place] [address], [address] [place] [phone]- Business (1) When: only if needed [facility] 11-15-2024 NoteColonoscopy Procedure Report Patient: COLLINS ROGERS [...] and Plan Diagnosis: Diverticulosis of sigmoid colon (NPY30-KU K57.30, Discharge, Medical). Course: Progressing as expected. Recommendations: Repeat colonoscopy:: In 10 years. Follow-up:: if problems/questions. Diet:: High fiber. Medication resumption:: Continue current medications. Return to activities:: After 24 hours. Education and Follow-up: Counseled.[facility]tering HealthComment on above: Other Comment: Missing Attachment - attachment storage system not supported [id number] Can be viewed in source system Missing Attachment - attachment storage system not supported [id number] Can be viewed in source systemMissing Attachment - attachment storage system not supported [id number] Can be viewed in source systemMissing Attachment - attachment storage system not supported [id number] Can be viewed in source systemMissing Attachment - attachment storage system not supported [id number] Can be viewed in source [id number] NoteProgress Note-Physician Patient: COLLINS ROGERS Age: 69 [...] All Problems Hypertensive disorder / SNOMED CT 6247321874 / Confirmed Anxiety / SNOMED CT 54556629 / Confirmed Depression / SNOMED CT 13912581 / Confirmed Cervical spondylosis / SNOMED CT 0735029135 / Confirmed Spinal stenosis / SNOMED CT 855896941 / Confirmed Hypercholesterolemia / SNOMED CT 44265945 / Confirmed Umbilical hernia / SNOMED CT 3859120423 / Confirmed Diverticular disease / SNOMED CT 7080638091 / Confirmed Positive fecal occult blood test / SNOMED CT 5233730062 / Confirmed Obesity due to excess calories / SNOMED CT 7096732505 / Confirmed Screening for malignant neoplasm of colon / SNOMED CT 610787723 / Confirmed BMI 35.0-35.9,adult / SNOMED CT 628093509 / Confirmed Histories Past Medical History: No [...] II (soft palate, fauces, uvula visible). Plan [place] [employer] Anesthesiologists (ASA) physical status classification: Class III. Anesthetic Preoperative Plan: Anesthesia General.[facility] Comment on above:Result Comment: Electronically Signed By: Amos Mckeon CRNA.br\Date and Time Signed: 09/05/2410:04 UBG27-12-4923 NoteHistory and Physical Patient: COLLINS ROGERS Age: 69 years Sex: Female : 1955 Associated Diagnoses: None Author: Vipul OVERTON MD Subjective no changes to H & PFCrystal Clinic Orthopedic CenterComment on above:Result Comment: Electronically Signed By: Vipul OVERTON MD\.br\Date and Time Signed: 09/05/24 10:00 JYZ60-86-9270 NotePatient Education - Text Diverticulosis Many people [...] unsweetened, w/added ascorbic acid 1 cup 0.5 Gregg 1 cup 0.7 Vegetables Cooked Green beans 1 cup 4.0 Carrots 1/2 cup sliced 2.3 Peas 1 cup 8.8 Potato (baked, with skin) 1 medium potato 3.8 Raw [place] (with peel) 1 cucumber 1.5 Lettuce 1 [...] 8.7 Peanuts 1/2 cup 7.9 Chart from [facility] 2013. SEEK IMMEDIATE MEDICAL CARE IF: You [...] Information adapted from: ExitCare??? Patient Information ???2009 [employer]. [facility] 2012 [email or web address]://[email or web address].[email or web address] AI/contents/mgmooglfyfkj-ykgpcyb-bpbsxr-the-basics Colonoscopy Care After Surgery Please read the [...] by your doctor. Beg (more content not included)...[facility] General [facility] Office/Clinic Note Chief Complaint [...] Use:., 08/19/2024 Family History Hypertension: Father. Stroke: Mother.[facility]tering HealthComment on above:Result Comment: Electronically Signed By: DALIA FLORES, Vipul Dowling\Date and Time Signed: 08/19/24 15:52 EDTEvaluation + Plan note Future Appointments Appointment Date:09/05/2024 08:30:00 AM Scheduled Provider: Location:[facility] Surgical Services Appointment Type:Surgery FT [facility] Hospital course Narrative No data available for this section [facility] Hospital Discharge instructions No data available for this section [facility] Progress note No data available for this section [facility] Summary Purpose Family History No Family History Records Found No data available for this section No data available for this section No Family History Records Found Advance Directives No Advanced Directives Records FoundNo Advanced Directives Records Found Additional Source Comments INFORMATION SOURCE (unrecogn ized section and content) DATE CREATED AUTHOR 11/18/2022 [facility] DATE CREATED AUTHOR AUTHOR'S ORGANIZ ATION 09/10/2024 [facility] Care team informatio n (unrecognized section and content) Personnel Name: Charito De Paz MD Address: Address: [address] [place] [address] Personnel Name: Charito De Paz MD Address: Address: [address] [place] [address] FOR RECORDS PERTAINING TO PATIENTS WHO ARE [...] BE BASED ON THE PRIMARY CLINICAL RECORDS. [facility] HospitalNe[facility]. provides no warranty or guarantee of the accuracy or completeness of information in this document.
--- OUTSIDE RECORDS SUMMARY | 2025-10-20 10:00 | XMS_ITS | Patient Health Record ---
Author Organization [facility] [place] Address [address] [place] [address] Care Team Providers Care Dry Starch Supervisor Name Role Phone Renan De Paz Primary Care Provider [phone] Allergies No Known Allergies Results Component Value Reference Range Notes MM tomosynthesis screening B I Reviewed date:05/12/2025 04:14:49 PM Interpretation: Performing Lab: Notes/Report: Source Facility: [place] [address] Mammography Report Signed Patient: LILIANA ROGERS MR#: [id number] : 1955 Acct:[id number] Age/Sex: 69 / F ADM Date: 05/12/25 Loc: MAMMO Attending Dr: Charito De Paz M.D. Ordering Physician: Charito De Paz M.D. Results: Date of Service: 05/12/25 Follow Up: Procedure(s): MM tomosynthesis screening BI Accession Number(s): [id number] cc: Charito De Paz M.D. Patient Name: LILIANA ROGERS MR#: [id number] : 1955 Exam Date: 05/12/2025 Ordering Doctor: DR CHARITO DE PAZ . RADIOLOGY REPORT PROCEDURE: MM TOMOSYNTHESIS SCREENING BI COMPARISON: MM TOMOSYNTHESIS SCREENING BI, 08/20/2023. MG MAMM SCREEN 3D MADIE CAD, 04/26/2021. MG MAMM SCREEN MADIE W CAD, 03/23/2020. MG MAMM SCREEN MADIE W CAD, 12/25/2017. INDICATIONS: Screening Calculator Name NCI Breast Cancer Risk Assessment Tool 5 Year Breast Cancer Risk 1.90% Lifetime Breast Cancer Risk 6.40% Personal Breast Cancer No Personal Ovarian Cancer No Treatments wide excision Family Cancers None [facility] BREAST COMPOSITION: There are scattered areas of fibroglandular density. FINDINGS: DIAGNOSTIC CATEGORY 1--NEGATIVE. RIGHT BREAST: No significant suspicious finding. LEFT BREAST: No significant suspicious finding. RECOMMENDATIONS: ROUTINE MAMMOGRAM AND CLINICAL EVALUATION IN 12 MONTHS. PLEASE NOTE: A NORMAL MAMMOGRAM DOES NOT EXCLUDE THE POSSIBILITY OF BREAST CANCER. A CLINICALLY SUSPICIOUS PALPABLE LUMP SHOULD BE BIOPSIED. Dictated by: Cristo Akhtar DO on 05/12/2025 at 16:01 Approved by: Cristo Akhtar DO on 05/12/2025 at 16:02 Dictated By: Cristo Akhtar M.D. Signed By: 05/12/25 1602 DD/ 01 TD/TT: Immunology Specialist: Reason For Referral No Information Medications Medication SIG (Take, Route, Frequency, Duration) Notes Start Date End Date Status Losartan Potassium 100 MG 1 tablet Orally Once a day; Duration: 90 days Active Social History Tobacco Use: Social History Observation Description Date Details (start date - stop date) Never Smoker NA - NA Tobacco Use/Smoking Question Answer Notes Patient is a nonsmoker Alcohol Screen (Audit-C) Question Answer Notes Did you have a drink containing alcohol in the p ast year? Yes How often did you have 6 or more drinks on one occasion in the past year?Never (0 point)How many drinks did you have on a typical day when you were drinking in the past year?1 or 2 drinks (0 point)How often did you have a drink containing alcohol in the past year?Weekly (3 points)Ozkbno5ZgczaoxgezxhevOykyeqobOJRQB-Q (Standard) Question Answer Notes Did you have a drink containing alcohol in the p ast year? Yes How often did you have a drink containing alcohol in the past year?2 to 3 times a week (3 points)How many drinks did you have on a typical day when you were drinking in the past year?3 or 4 drinks (1 point)How often did you have six or more drinks on one occasion in the past year?Never (0 point)Points4 InterpretationPositive Problems Problem Type SNOMED Code ICD Code Onset Dates Problem Status W/U Status Risk Notes Problem Hypertension (75728032) Hypertension (I10 ) ActiveconfirmedProblemHypertension (87231246)HTN (hypertension) (I10)Active confirmedProblemWell adult (133745616)Well adult (Z00.00)ActiveconfirmedProblem Muscle spasm (23183243)Muscle spasm (M62.838)ActiveconfirmedProblemIrritable bowel (30422628)Irritable bowel (K58.9)Activeconfirmed Vital Signs Blood pressure diastolic 80 mm Hg 08/24/2025 Puukog63 in08/24/2025lood pressure eayhijru138 mm Hg08/24/20250230Zckvim975.6 lbs 08/24/2025BMI36.95 kg/m208/24/2025 Procedures Procedure Date Ordered Date Performed Result Body Sit e EAR IRRIGATION - performed 08/24/2025 N/A Encounters Encounter Location Date Provider Diagnosis [facility] [address] [place] [address] 12/31/2024 Renan Hoy Irritable bowel K58. 9 [facility] [address] [place] [address] 08/24/2025 Renan Hoy Hypertension I10 ; Irritable bowel K58.9 and Bilateral impacted cerumen H61.23 [facility] [address] [place] [address] 02/06/2025 Renan Hoy [facility] [place] [address] 05/12/2025Doug Hoy Assessments Encounter Date Diagnosis (ICD Code) Assessment Notes Treatment Notes Treatment Clinical Notes Section Notes 12/31/2024 Irritable bowel (ICD-10 - K58.9) 08/24/2025Hypertension (ICD-10 - I10)discussed cutting back opn caffeinte 08/24/2025Irritable bowel (ICD-10 - K58.9)08/24/2025ilateral impacted cerumen (ICD-10 - H61.23) Plan Of Treatment Pending Test Test Name Order Date CMP (COMPLETE METABOLIC PANEL) HEMOGLOBIN A1C (GLYCO) 04/25/2023 HEMOGLOBIN A1C (GLYCO) 08/24/2025 IRON, TOTAL 08/24/2025 LIPID PANEL (CHOL/TRIG/HDL/LDL) 08/24/20 25 LIPID PANEL (CHOL/TRIG/HDL/LDL) 04/25/20 23 CBC WITH DIFF (EXP 08/2025) 04/25/2023 MAMM Mammograms CAD 04/25/2023 Insulin Level 08/24/2025 EAR IRRIGATION - performed 08/24/2025 STOOL OCCULT BLOOD 04/25/2023 MAGNESIUM 08/25/2024 PROF CHEM 8 (BAS METB) 08/25/2024 THYROID PANEL (T4/TSH/FREE T3) 3 THYROID PANEL (T4/TSH/FREE T3) 5 CMP (COMP MET GRESHAM) w/eGFR CKD-EPI 2024 CBC WITH DIFF 08/24/2025 Insurance Providers Payer Name Payer Address Payer Phone Subscriber Number Group Number Insured Name Patient Relationship to Insured Coverage Start Date Coverage End Date [employer] [address] [place] [address] [id number] Layla Rogers - patient is the insured Medical (General) History Medical History History ICD Code Anxiety F41.9 Depression F32.9 Breast mass N63.0 Cervical spondylosis M47.812 COVID-19 U07.1 Diverticular disease K57.90 Hypertension I10 Knee osteoarthritis M17.10 Meningioma D32.9 Hypercholesterolemia E78.00 Spinal stenosis M48.00 Umbilical hernia K42.9 Surgical History Surgery Date(Month/Year) cancer left thgih skin CARPAL TUNNEL releaseneck diulbzxWrhdmwyaqwp72/15/24YSTERECTOMY TOTAL
[2025-10-20 10:58] LABS: Hematocrit 43.0 % (36.0-48.0); Hemoglobin 14.0 g/dL (12.0-16.0); Immature Granulocytes Abs Auto 0.02 10^3/uL (0.00-0.03); Immature Granulocytes Pct Auto 0.4 % (0.0-0.5); Lymphocytes Absolute Auto 1.9 10^3/uL (1.2-3.8); Mean Corpuscular HGB Conc 32.6 g/dL (29.9-35.2); Mean Corpuscular Hemoglobin 31.2 pg (26.7-34.0); Mean Corpuscular Volume 95.8 fL (81.0-99.0); Platelet Count 309 10^3/uL (150-450); Red Blood Count 4.49 10^6/uL (4.20-5.40); White Blood Count 5.2 10^3/uL (4.0-11.0)
[2025-10-20 11:19] LABS: Alanine Aminotransferase 26 U/L (14-59); Albumin Globulin Ratio 1.1; Albumin Level 3.9 g/dL (3.4-5.0); Alkaline Phosphatase 92 U/L (46-116); Anion Gap 11.5; Aspartate Amino Transferase 16 U/L (15-37); Blood Urea Nitrogen 12.0 mg/dL (7.0-18.0); Calcium 9.8 mg/dL (8.5-10.1); Carbon Dioxide 27.5 mmol/L (21.0-32.0); Chloride 105 mmol/L (98-107); Cholesterol 234 mg/dL (<=200); Estimated GFR (African America >60 (>=60 mL/min/1.73m^2); Estimated GFR (Non-African Ame >60 (>=60 mL/min/1.73m^2); Free T3 2.79 pg/mL (2.18-3.98); Globulin 3.4 g/dL; Glucose 105 mg/dL (74-106); HDL Cholesterol 63 mg/dL (40-60); Potassium 4.0 mmol/L (3.5-5.1); Sodium 140 mmol/L (136-145); Thyroid Stimulating Hormone 0.770 uIU/mL (0.358-3.740); Total Protein 7.3 g/dL (6.4-8.2); Triglycerides 119 mg/dL (<=150); VLDL CHOLESTEROL 23.8 mg/dL
[2025-10-20 12:11] LABS: Iron 138.0 ug/dL (50.0-170.0)
== END 2025-10-20 09:45 | disposition home or self-care (01) ==
PROVIDERS: PCP Family Medicine; Visit Provider Family Medicine
DX: K58.9 Irritable bowel syndrome, unspecified (principal); I10 Essential (primary) hypertension; E16.2 Hypoglycemia, unspecified; D64.9 Anemia, unspecified
CPT/HCPCS: 36415; 80053; 80061; 83036; 83525; 83540; 84436; 84443; 84481; 85025